=== PATIENT | female | born 1930 | race Caucasian/White ===

== ENCOUNTER → 2016-05-28 | Outpatient (REF) | payer MEDICARE, OTHER ==
[~2016-05-28] MED LIST: AZIT250T3 PO; BENI40TA3 PO; CEFT500T3 PO; CORE12.5 PO; FISH100049 PO; FLUO0.01 TOP; FURO20TA2 PO; HYDR10TAB PO; LEVO75TA4 PO; MULT1TAB8 PO; OMEP20CA3 PO; PRED20TA PO; PROA1AER INH; REST0.05 OU; SIMV40TA2 PO; VITA-130 PO; VITA100037 PO; ZOLO100T PO
[2016-05-28 12:26] LABS: ALBUMIN 3.6 GM/DL (3.2-5.2); ALBUMIN/GLOBULIN RATIO 1.57 (1.00-1.93); ALKALINE PHOSPHATASE 63 U/L (45-117); ALT/SGPT 25 U/L (12-78); ANION GAP 9 MEQ/L (8-16); AST/SGOT 19 U/L (15-37); BILIRUBIN,TOTAL 0.4 MG/DL (0.2-1.0); BLOOD UREA NITROGEN 15 MG/DL (7-18); CALCIUM LEVEL 8.3 MG/DL (8.8-10.2); CARBON DIOXIDE LEVEL 27 MEQ/L (21-32); CHLORIDE LEVEL 109 MEQ/L (98-107); CHOLESTEROL LEVEL 131 MG/DL (<200); CREATININE FOR GFR 0.78 MG/DL (0.55-1.02); GLOMERULAR FILTRATION RATE > 60.0 (>32); GLUCOSE, FASTING 99 MG/DL (83-110); SODIUM LEVEL 145 MEQ/L (136-145); TOTAL PROTEIN 5.9 GM/DL (6.4-8.2); TRIGLYCERIDES LEVEL 81 MG/DL (<150)
== END | disposition home or self-care (01) ==
LOC: M SFHCPLAZ 09:37
PROVIDERS: ATTEND Internal Medicine
DX: I10 Essential (primary) hypertension (principal); E78.00 Pure hypercholesterolemia, unspecified; E03.9 Hypothyroidism, unspecified

== ENCOUNTER → 2016-11-24 | Outpatient (REF) | payer MEDICARE, OTHER ==
[~2016-11-24] MED LIST changes: +ASPI1TAB PO; +AZIT-12 PO; -AZIT250T3 PO; +BENI40TA26 PO; -BENI40TA3 PO; +COUM2.5T17 PO; -PROA1AER INH; +PROAAER10 INH; +TRAM50TA2 PO; -VITA-130 PO; -VITA100037 PO; +VITA100067 PO; +VITA500T PO
[2016-11-24 11:18] LABS: MEAN CORPUSCULAR HEMOGLOBIN 30.6 pg (27.0-33.0); MEAN CORPUSCULAR HGB CONC 33.5 g/dl (32.0-36.5); MEAN CORPUSCULAR VOLUME 91.3 fl (80.0-96.0); RED CELL DISTRIBUTION WIDTH 12.6 % (11.5-14.5)
[2016-11-24 11:39] LABS: ALBUMIN 3.6 GM/DL (3.2-5.2); ALBUMIN/GLOBULIN RATIO 1.29 (1.00-1.93); ALKALINE PHOSPHATASE 57 U/L (45-117); ALT/SGPT 30 U/L (12-78); ANION GAP 9 MEQ/L (8-16); AST/SGOT 23 U/L (15-37); BILIRUBIN,TOTAL 0.3 MG/DL (0.2-1.0); BLOOD UREA NITROGEN 19 MG/DL (7-18); CALCIUM LEVEL 8.5 MG/DL (8.8-10.2); CARBON DIOXIDE LEVEL 28 MEQ/L (21-32); CHLORIDE LEVEL 108 MEQ/L (98-107); CHOLESTEROL LEVEL 174 MG/DL (<200); CREATININE FOR GFR 0.67 MG/DL (0.55-1.02); GLOMERULAR FILTRATION RATE > 60.0 (>32); GLUCOSE, FASTING 103 MG/DL (83-110); SODIUM LEVEL 145 MEQ/L (136-145); TOTAL PROTEIN 6.4 GM/DL (6.4-8.2); TRIGLYCERIDES LEVEL 91 MG/DL (<150)
== END ==
LOC: M SFHCPLAZ 08:58
PROVIDERS: ATTEND Internal Medicine
DX: K22.70 Barrett's esophagus without dysplasia (principal); I10 Essential (primary) hypertension; E78.00 Pure hypercholesterolemia, unspecified

== ENCOUNTER → 2017-01-21 | Outpatient (CLI) | payer MEDICARE, BC, OTHER ==
[2017-01-21 11:56] LABS: MEAN CORPUSCULAR HEMOGLOBIN 29.5 pg (27.0-33.0); MEAN CORPUSCULAR HGB CONC 32.7 g/dl (32.0-36.5); MEAN CORPUSCULAR VOLUME 90.5 fl (80.0-96.0); RED CELL DISTRIBUTION WIDTH 13.3 % (11.5-14.5); WHITE BLOOD COUNT 6.6 10^3/uL (4.0-10.0)
[2017-01-21 12:11] LABS: INR 1.04
[2017-01-21 12:46] LABS: ALBUMIN 3.9 GM/DL (3.2-5.2); ALBUMIN/GLOBULIN RATIO 1.26 (1.00-1.93); ALKALINE PHOSPHATASE 60 U/L (45-117); ALT/SGPT 30 U/L (12-78); ANION GAP 5 MEQ/L (8-16); AST/SGOT 17 U/L (15-37); BILIRUBIN,TOTAL 0.5 MG/DL (0.2-1.0); BLOOD UREA NITROGEN 27 MG/DL (7-18); CARBON DIOXIDE LEVEL 33 MEQ/L (21-32); CHLORIDE LEVEL 105 MEQ/L (98-107); CREATININE FOR GFR 0.91 MG/DL (0.55-1.02); GLOMERULAR FILTRATION RATE > 60.0 (>32); GLUCOSE, FASTING 99 MG/DL (83-110); POTASSIUM SERUM 4.2 MEQ/L (3.5-5.1); SODIUM LEVEL 143 MEQ/L (136-145)
--- NOTE | 2017-01-21 14:30 | REP ---
PA and lateral chest: Comparison is 09/26/2015. The lung tanner are clear. The cardiac size is normal The macarena, mediastinum, and bony thorax are unremarkable. There is a retrocardiac hiatal hernia, unchanged. Impression: Negative PA and lateral chest. Hiatal hernia is again identified. Signed by Otoniel Hart MD 01/21/2017 02:21 P
--- NOTE | 2017-01-21 19:29 | ECGEPIP ---
Stationary ECG Study [facility] Test Date: 2017-01-21 Pat Name: GEORGINA ECHEVERRIA Department: Room: - Gender: F Assistant Baseball Coach: BRIJESH : 1930 Requested By: Isma Joe Order Number: [id number] Reading MD: Yessica Bateman Measurements Intervals Gary Rate: 62 P: 51 [place]: 185 QRS: -47 QRSD: 106 T: 8 QT: 402 QTc: 410 Interpretive Statements SINUS RHYTHM PATTERN CONSISTENT WITH PULMONARY DISEASE LEFT ANTERIOR FASCICULAR BLOCK NON-SPECIFIC STT ABNORMALITIES NO PRIOR Electronically Signed On 01-21-2017 19:29:33 EDT by Yessica Bateman
== END ==
LOC: M ADMPAT 10:22
PROVIDERS: ATTEND Orthopaedic Surgery
DX: Z01.818 Encounter for other preprocedural examination (principal); M17.12 Unilateral primary osteoarthritis, left knee; Z79.01 Long term (current) use of anticoagulants; Z79.899 Other long term (current) drug therapy

== ENCOUNTER → 2017-01-26 | Outpatient (REF) | payer MEDICARE, OTHER | LOC: M LAB REF 09:36 | PROVIDERS: ATTEND Orthopaedic Surgery | DX: M17.12 Unilateral primary osteoarthritis, left knee (principal); Z01.818 Encounter for other preprocedural examination; Z79.899 Other long term (current) drug therapy ==

== ENCOUNTER 2017-02-03 10:13 | Inpatient (IN) | payer MEDICARE, BC, OTHER ==
[2017-01-21 11:41] VITALS: BP 124/74
--- NOTE | 2017-01-27 18:01 | HPE ---
DATE OF ADMISSION: 02/03/2017 HISTORY OF PRESENT ILLNESS: This is a pleasant elderly female with continuing symptomatic left knee osteoarthritis. She has consented for a left total knee arthroplasty per Dr. Isma Joe. X-rays are consistent with advanced osteoarthritis. The patient states she was cleared by Dr. Castro, which I am still awaiting the clearance note. ALLERGIES: CODEINE and SHELLFISH DERIVED PRODUCTS. MEDICATION LIST: Includes: - Mobic 7.5 mg - aspirin 81 mg - vitamin D - hydralazine HCl - omeprazole 20 mg - simvastatin 40 mg - sertraline HCl 100 mg - levothyroxine 75 mcg - furosemide 20 mg - carvedilol 12.5 mg - Restasis 0.05% - Benicar 40 mg MEDICAL PROBLEM LIST: Includes: 1. Symptomatic left knee osteoarthritis. 2. Essential hypertension. 3. Hypercholesteremia. 4. Acid reflux. 5. Depression. 6. Dry eyes. PAST SURGICAL HISTORY: 1. Tonsillectomy with adenoidectomy. 2. Cholecystectomy. 3. Appendectomy. 4. Partial hysterectomy. 5. Broken ankle. FAMILY HISTORY: Positive for hypertension, heart disease, arthritis, diabetes, hypercholesteremia. SOCIAL HISTORY: The patient denies ever smoking. Rare ethanol intake. No illicit drugs. REVIEW OF SYSTEMS: Denies chest pain, shortness breath, dyspnea on exertion, fever, chills, malaise, upper respiratory or urinary tract symptoms. PHYSICAL EXAMINATION: Height 5 feet, 1/2 inch, weight 184.4. Temperature 97.9, blood pressure 140/90, pulse 64, respirations 12. She is a pleasant, overweight female in no acute distress. She is alert and orientated times three. Mood and affect are appropriate. She is ambulating slow and steady with favoring of her right lower extremity and an antalgia about her left knee which is not effused, ecchymotic or erythematous , benign, noninfectious-looking, not hot to touch. She has positive medial joint line tenderness with crepitance about the knee through flexion and extension. She is stable about the collateral ligaments, patellar and quad tendons without palpable defects. Patellofemoral joint (PFJ) is congruent, static, dynamic. No popliteal fossa, mass or pain. Left hip range of motion is not limited or irritable through internal and external range of motion. She was possibly tender to palpation about both the medial, but more so the lateral joint line. The lower extremities were benign, noninfectious-looking. Skin is intact. Abdomen: Bowel soft, nontender times four. Chest rises symmetrically. Regular rate and rhythm. Lungs: Clear to auscultation. Neck: Supple. Negative jugular venous distention (JVD) or bruits. Normocephalic. EKG per [facility] was negative but a hiatal hernia was identified by Dr. Otoniel Hart 01/21/2017. EKG result sinus rhythm, pattern consistent with pulmonary disease, left anterior fascicular block as read by Dr. Bateman. Medical optimization per Dr. Moisés Castro 01/25/2017. Laboratories reviewed. Urinalysis (UA) and sinus culture: No growth, leukocyte esterase, urine auto, 2+ white blood cell (WBC) urine auto 7, bacteria urine auto +1. IMPRESSION: 1. Continuing symptomatic left knee osteoarthritis. 2. The patient consented for a left total knee arthroplasty per Dr. Isma Joe. 3. Medical optimization per Dr. Moisés Castro. 4. On-call to operating room (OR) 2 grams IV Kefzol in OR. 5. Sequential compression device (SCD) and thromboembolic-deterrent stockings (TEDS) in OR. 6. Surgical consent reviewed and up-to-date. [facility]
[~2017-02-03] VITALS: Ht 160 cm; Wt 84.8 kg
[~2017-02-03 10:13] MED LIST changes: -COUM2.5T17 PO; -TRAM50TA2 PO
[2017-02-03] MEDS ORDERED: LR 1,000 ML IV ONE (10:30)
[2017-02-03] MEDS ORDERED: fentaNYL 100 MCG/2 ML INJECTION (J3010) As Ordered ONE ×2 (11:12→12:46)
[2017-02-03] MEDS ORDERED: MIDAZOLAM INJ 2 MG/2 ML VIAL (J2250) As Ordered ONE ×2 (11:12→12:46)
--- NOTE | 2017-02-03 11:19 | HPE ---
DATE OF ADMISSION: 02/03/2017 The patient seen and examined. Wished to go ahead with a left total knee arthroplasty. She understands the nature of the procedure. The risks of bleeding, infection, damage to the nerve vessels, persistent pain, wear, loosening, blot clots medical problems, among others.
[2017-02-03] MEDS ORDERED: BUPIVACAINE LIPOSOME/PF 1.3% 20 ML VIAL (13.3MG/ML)(EXPAREL) As Ordered ONE (11:24)
[2017-02-03] MEDS ORDERED: ceFAZolin 1GM INJ (J0690) As Ordered ONE ×2 (11:25→12:22)
[2017-02-03] MEDS ORDERED: TRANEXAMIC ACID 100 MG/ML 10ML VIAL As Ordered ONE (11:27)
[2017-02-03] MEDS ORDERED: EPINEPHrine INJ 1 MG/ML 1ML AMP As Ordered ONE (11:27)
[2017-02-03] MEDS ORDERED: fentaNYL 100 MCG/2 ML INJECTION (J3010) IV SCH (11:45)
[2017-02-03] MEDS ORDERED: MIDAZOLAM INJ 2 MG/2 ML VIAL (J2250) IV SCH (11:45)
[2017-02-03] MEDS ORDERED: ONDANSETRON 4MG/2ML VIAL (J2405) As Ordered ONE (12:46)
[2017-02-03] MEDS ORDERED: METOCLOPRAMIDE INJ 10MG/2ML VIAL (J2765) As Ordered ONE (12:46)
[2017-02-03] MEDS ORDERED: PROPOFOL 500 MG/50 ML VIAL As Ordered ONE (12:46)
[2017-02-03] MEDS ORDERED: PHENYLephrine HCL 500 MCG/5 ML (100MCG/ML) SYRINGE (J2370) As Ordered ONE (12:56)
[2017-02-03] MEDS ORDERED: ePHEDrine SULFATE 25 MG/5 ML(5MG/ML) SYRINGE As Ordered ONE (12:56)
[2017-02-03] MEDS ORDERED: MORPHINE 1MG/ML IN 0.9% NACL 100ML IV BAG As Ordered ONE (13:33)
[2017-02-03] MEDS ORDERED: fentaNYL 100 MCG/2 ML INJECTION (J3010) IV PRN (14:15)
[2017-02-03] MEDS ORDERED: EPIDURAL/PCA KEYS XX PRN (14:15)
[2017-02-03] MEDS ORDERED: FLEET ENEMA PR PRN (14:15)
[2017-02-03] MEDS ORDERED: LR 1,000 ML IV SCH ×2 (14:15)
[2017-02-03] MEDS ORDERED: NALOXONE INJ 0.4 MG/1 ML VIAL (J2310) IV PRN (14:15)
[2017-02-03] MEDS ORDERED: MORPHINE 1MG/ML IN 0.9% NACL 100ML IV BAG IV PRN (14:15)
[2017-02-03] MEDS ORDERED: diphenhydrAMINE INJ 50MG/ML VIAL (J1200) IV PRN (14:15)
[2017-02-03] MEDS ORDERED: ACETAMINOPHEN TAB 650MG DOSE (2X325MG) PO PRN (14:15)
[2017-02-03] MEDS ORDERED: ONDANSETRON 4MG/2ML VIAL (J2405) IV PRN ×3 (14:15)
[2017-02-03] MEDS ORDERED: NALBUPHINE HCL 10 MG/ML AMP (J2300) IV PRN (14:15)
[2017-02-03] MEDS ORDERED: hydrALAZINE INJ 20 MG/ML VIAL As Ordered ONE (15:09)
[2017-02-03] MEDS ORDERED: hydrALAZINE INJ 20 MG/ML VIAL IV ONE (15:15)
[2017-02-03] MEDS ORDERED: **hydrALAZINE** 50 MG TAB PO ONE (15:15)
--- NOTE | 2017-02-03 15:45 | RO ---
DATE OF PROCEDURE: 02/03/2017 PREOPERATIVE DIAGNOSIS: Left knee osteoarthritis. POSTOPERATIVE DIAGNOSIS: Left knee osteoarthritis. OPERATIVE PROCEDURE: Left total knee arthroplasty using a PFC rotating platform, posterior stabilized size 3 femur, size 3 tibia, 10 polyethylene and a 32 patellar button. SURGEON: Isma Joe MD METALIZER: Mona Joe ANESTHESIA: Spinal ESTIMATED BLOOD LOSS: Less than 50 mL COMPLICATIONS: None INDICATION: 86-year-old woman who has had some gradually worsening left knee pain. She has had severe arthritis on her x-rays and wished to go ahead with surgical treatment. She understood the nature of the procedure and the risks including bleeding, infection, damage to nerves, vessels, persistent pain, wear, loosening, blood clots, medical problems, among others. Preop clearance obtained. DESCRIPTION OF PROCEDURE: The patient is taken to the operating room and placed in supine position after spinal anesthesia was induced. Left lower extremity was prepped and draped in the usual sterile fashion. Tourniquet was inflated. Time-out was performed. I then created a longitudinal incision over the anterior aspect of the knee. Sharp dissection was carried down through the subcutaneous tissue. Then I performed a medial parapatellar arthrotomy per routine, everted the patella, did a medial release and then using a canal initiating reamer on the femoral side, which the femoral side was in a fair amount of valgus. I did set the intramedullary guide at 7 degrees of valgus and 10 mm cut. This was pinned in place by the assistant chief nursing officer and actually removed 2 more millimeters of bone just judging by the depth of this cut. The sizing guide was used sized to be a size 3 femur and the pin holes were placed in the end of the femur with the 3 degrees external rotation device and then the four-in-one cutting block was placed and the remaining cuts were made as I protected soft tissues at all times. The tibial alignment guide was then placed and impacted down. This was placed with appropriate amount of valgus and posterior slope. I ended up cutting 10 off the high side and the external alignment guide was used confirm the alignment, which was appropriate and then I removed the tibial bone. The environmental inspector was then used to remove soft tissue and posterior osteophytes. Controlled hemostasis with the cautery. I then placed the size 3 cutting block for the box on the end of the femur, pinned this in place and made this cut by making first the two sagittal cuts followed by the axial cut. The bone cuts appeared to be appropriate. I then used the spacer block to check the space. The size 10 was appropriate in both flexion and extension and I was overall very pleased with the alignment and soft tissue tension. I then placed the tibial tray, size 3. This was pinned in place, drilled, broached and the remaining components were placed and I was very pleased with the position of alignment and soft tissue balance with the size 10 polyethylene. I then freehand cut the patella, removing about 7 mm of bone, sized the patella to be a 32. The drill holes were placed and trial patellar button was placed. I did have to do somewhat of a lateral release to allow for patellar tracking. The assistant chief nursing officer prepared the bone cement in the modern technique on the back table. I injected half of the Exparel using a total of 40 mL with 20 mL of the drug diluted into saline and this was injected around the capsule and extensor mechanism. Once the bony surfaces were copiously irrigated and dried I then cemented on the tibial tray, cemented on the femoral component, removed excess bone cement, placed the polyethylene and brought the knee out in extension, cemented on the patellar component, removed excess bone cement and then we copiously irrigated with antibiotic irrigation, placed the TXA solution. I then placed the remaining Exparel around the deep layers. The final irrigation was performed. I closed the deep layer with on #1 Vicryl suture with an interrupted fashion and then used a running Stratafix in each direction obtaining a watertight closure. I again irrigated, closed subcu with #2-0 Vicryl and the skin with jayla. Sterile dressing was applied. Tourniquet was deflated. She was taken to recovery room in stable condition. There were no known complications. The plan will be routine postop. The assistant chief nursing officer was instrumental in holding retractors and placing pins for some of the guides and assisting in wound closure.
[2017-02-03 15:48] LABS: MEAN CORPUSCULAR HEMOGLOBIN 29.9 pg (27.0-33.0); MEAN CORPUSCULAR VOLUME 90.7 fl (80.0-96.0); RED CELL DISTRIBUTION WIDTH 13.3 % (11.5-14.5); WHITE BLOOD COUNT 6.8 10^3/uL (4.0-10.0)
[2017-02-03 16:14] LABS: ALBUMIN 3.5 GM/DL (3.2-5.2); ALKALINE PHOSPHATASE 73 U/L (45-117); ALT/SGPT 47 U/L (12-78); ANION GAP 6 MEQ/L (8-16); AST/SGOT 56 U/L (15-37); BILIRUBIN,TOTAL 0.4 MG/DL (0.2-1.0); BLOOD UREA NITROGEN 16 MG/DL (7-18); CALCIUM LEVEL 8.4 MG/DL (8.8-10.2); CARBON DIOXIDE LEVEL 29 MEQ/L (21-32); CHLORIDE LEVEL 108 MEQ/L (98-107); GLUCOSE, FASTING 112 MG/DL (83-110); MAGNESIUM LEVEL 1.9 MG/DL (1.8-2.4); POTASSIUM SERUM 4.3 MEQ/L (3.5-5.1); SODIUM LEVEL 143 MEQ/L (136-145)
[2017-02-03 16:15] VITALS: BP 151/66
[2017-02-03 16:17] LABS: GLOMERULAR FILTRATION RATE > 60.0 (>32)
[2017-02-03] MEDS: OLMESARTAN MEDOXOMIL 20 MG TAB (BENICAR) PO SCH (16:32)
--- NOTE | 2017-02-03 16:38 | ECGEPIP ---
Stationary ECG Study [facility] Test Date: 2017-02-03 Pat Name: GEORGINA ECHEVERRIA Department: Room: [place] [address] Gender: F Winding Operator: BRIJESH : 1930 Requested By: VADIM MAC Order Number: [id number] Reading MD: Arnel Mcgee Measurements Intervals [place] Rate: 77 P: 17 [place]: 172 QRS: -48 QRSD: 100 T: 26 QT: 399 QTc: 454 Interpretive Statements SINUS RHYTHM PATTERN CONSISTENT WITH PULMONARY DISEASE left axis deviation Possible LEFT ANTERIOR FASCICULAR BLOCK MINIMAL ST DEPRESSION Improved repolarization compared to 01/21/2017. Electronically Signed On 02-03-2017 16:38:09 EDT by Arnel Mcgee
[2017-02-03 16:45] VITALS: BP 142/66
[2017-02-03] MEDS ORDERED: WARFARIN SOD 5 MG TAB PO ONE (17:00)
[2017-02-03] MEDS ORDERED: SIMVASTATIN 40 MG TAB PO SCH (17:00)
--- NOTE | 2017-02-03 18:05 | CR.PDOC ---
[facility] Consultation Consultation DATE OF CONSULTATION: 02/03/17 PRIMARY CARE PHYSICIAN: Dr. Moisés Castro REFERRING PROVIDER: Dr. Joe ATTENDING PHYSICIAN: Dr. Joe REASON FOR CONSULTATION/CHIEF COMPLAINT: Medical co-management HISTORY OF PRESENT ILLNESS: This is a 86-year-old female past medical history of hypertension, hyperlipidemia, GERD, symptomatic osteoarthritis for which she had a left total knee arthroplasty today. We have been consulted for medical comanagement. Upon evaluating patient, the patient's blood pressure was systolic greater than 200s diastolic greater than 100. She had not taken her blood pressure medications this morning. Patient also complaining of upper abdominal discomfort. Denies nausea/vomiting. Had a bowel movement this morning. Patient was given IV hydralazine followed by PO hydralazine, with improvement in her blood pressure. She was started on a clear liquid diet and her abdominal discomfort resolved. Her LFTs were within normal limits and her lipase was normal. Patient denies any chest pain/angina/palpation. No nausea/vomiting/abdominal pain. ALLERGIES: Please see below. HOME MEDICATIONS: Please see below. PHYSICAL EXAMINATION: Vitals: (see below) General: No acute distress, laying comfortably in bed. HEENT: Moist mucous membranes. Neck: No JVD or lymphadenopathy Cardiac: RRR, No murmurs Pulm: Clear to auscultation b/l. No wheezing, rhonchi Abd: NT/ND + BS. Obese Ext: Left knee in Mart bandage. Distal pulses intact. LABORATORY DATA: See below. IMAGING: MICROBIOLOGY: Please see below. ASSESSMENT/PLAN: 1. Postop day 0 status post left knee arthroplasty- management per orthopedics. 2. Hypertension- started on hydralazine, continue ARB. Diuretics held for now continue restarting tomorrow. 3. Abdominal discomfort- likely bloating. Resolved. LFTs/lipase within normal limits. EKG with no acute ST changes. Cardiac enzymes negative. 4. History of GERD.-On PPI 5. Hypothyroidism- continue Synthroid 6. History of depression- continue home meds DVT prophylaxis- per orthopedics Patient will be followed by Dr. Christie Durán starting 02/04/17 at 7 AM. Vital Signs/I&O Vital Signs Date Time Temp Pulse Resp B/P (MAP) Pulse Ox O2 Delivery O2 Flow Rate FiO2 02/03/17 16:45 97.9 79 14 142/66 (91) 97 Nasal Cannula 2.0 I&O- Last 24 Hours up to 6 AM 02/04/17 06:00 Intake Total 1840 ml Output Total 650 ml Balance 1190 ml Laboratory Data Labs 24H Laboratory Tests 2 02/03/17 15:35: Nucleated Red Blood Cells % (auto) 0.0, Anion Gap 6L, Glomerular Filtration Rate > 60.0, Blood Urea Nitrogen 16, Creatinine 0.80, Sodium Level 143, Potassium Level 4.3, Chloride Level 108H, Carbon Dioxide Level 29, Calcium Level 8.4L, Aspartate Amino Transf (AST/SGOT) 56H, Alanine Aminotransferase (ALT /SGPT) 47, Total Creatine Kinase 116, Alkaline Phosphatase 73, Total Bilirubin 0.4, Total Protein 6.0L, Albumin 3.5, Magnesium Level 1.9, Creatine Kinase MB 3.3, Creatine Kinase MB Relative Index 2.84, Troponin I < 0.02, Albumin/ Globulin Ratio 1.40, Lipase 67L CBC/BMP Laboratory Tests 02/03/17 15:35 Red Blood Count 4.18, Mean Corpuscular Volume 90.7, Mean Corpuscular Hemoglobin 29.9, Mean Corpuscular Hemoglobin Concent 33.0, Red Cell Distribution Width 13.3 , Calcium Level 8.4 L, Aspartate Amino Transf (AST/SGOT) 56 H, Alanine Aminotransferase (ALT/SGPT) 47, Total Creatine Kinase 116, Alkaline Phosphatase 73, Total Bilirubin 0.4, Total Protein 6.0 L, Albumin 3.5 Allergies Coded Allergies: Codeine (Unverified Adverse Reaction, Mild, ABDOMINAL PAIN, 02/03/17) Shellfish Allergy (Verified Adverse Reaction, Mild, N/V, 01/21/17) Home Medications Scheduled (Multi Vitamin Daily) 1 Tab Tab, 1 TAB PO DAILY, (Reported) (Restasis) 0.05 % Emu, 0.05 % OU BID, (Reported) Ascorbic Acid (Vitamin C) 500 Mg Tab, 500 MG PO DAILY, (Reported) Aspirin (Aspirin 81) 81 Mg Tab, 81 MG PO DAILY, #30 (Reported) Carvedilol (Coreg) 12.5 Mg Tab, 12.5 MG PO BID, (Reported) Fish Oil (Fish Oil 1000 mg) 1 Cap Cap, 1 CAP PO BID, (Reported) Furosemide (Furosemide) 20 Mg Tab, 20 MG PO DAILY, (Reported) Hydralazine HCl (Hydralazine HCl) 10 Mg Tab, 10 MG PO BID, (Reported) Levothyroxine Sodium (Synthroid) 75 Mcg Tab, 75 MCG PO DAILY, (Reported) Olmesartan Medoxomil (Benicar) 40 Mg Tab, 40 MG PO DAILY, (Reported) Omeprazole (Omeprazole) 20 Mg Cap, 40 MG PO DAILY, (Reported) Sertraline Hcl (Zoloft) 100 Mg Tab, 50 MG PO DAILY, (Reported) Simvastatin - High Dose (Simvastatin) 40 Mg Tab, 20 MG PO 3XW, (Reported) takes @1700 mon, wed, fri Vitamin D (Vitamin D) 1,000 Unit Cap, 1,000 UNIT PO DAILY, (Reported) Scheduled PRN Albuterol Sulfate (Proair Hfa) 108 Mcg/Act Aer, 108 MCG INH PRN PRN for SHORTNESS OF BREATH, (Reported) Fluocinolone Acetonide (Fluocinolone Acetonide) 0.01 % Cre, 0.01 % TOP PRN PRN for ITCHING, (Reported) applies to genital area and under breasts VADIM MAC MD Feb 03, 2017 18:05
[2017-02-03 18:45] VITALS: BP 120/61
[2017-02-03 19:45] VITALS: BP 139/65
[2017-02-03] MEDS: CARVedilol 12.5 MG TAB PO SCH (20:20)
[2017-02-03 20:45] VITALS: BP 136/64
[2017-02-03 21:44] VITALS: O2SAT 96
[2017-02-04 00:45] VITALS: BP 128/62
[2017-02-04] MEDS: LEVOTHYROXINE 75MCG TABLET (0.075MG) PO SCH (05:38)
[2017-02-04 06:00] VITALS: BP 119/55
[2017-02-04] MEDS ORDERED: traMADol 50 MG TAB PO PRN (06:45)
[2017-02-04] MEDS ORDERED: ONDANSETRON 4 MG TAB (S0181) PO PRN (06:45)
[2017-02-04 07:18] LABS: MEAN CORPUSCULAR HEMOGLOBIN 29.6 pg (27.0-33.0); MEAN CORPUSCULAR HGB CONC 32.1 g/dl (32.0-36.5); MEAN CORPUSCULAR VOLUME 92.3 fl (80.0-96.0); RED CELL DISTRIBUTION WIDTH 13.4 % (11.5-14.5); WHITE BLOOD COUNT 9.3 10^3/uL (4.0-10.0)
[2017-02-04 07:23] LABS: INR 1.35
[2017-02-04] MEDS: MIRALAX *UNIT DOSE* 17GM PACKET PO SCH (09:10)
[2017-02-04] MEDS: MOM 30ML SUSPENSION UDC PO SCH (09:10)
[2017-02-04] MEDS: OLMESARTAN MEDOXOMIL 20 MG TAB (BENICAR) PO SCH (09:11)
[2017-02-04] MEDS: SENOKOT S TAB PO SCH ×2 (09:12→22:26)
[2017-02-04] MEDS: VITAMIN D 1,000 INTERNATIONAL UNITS TABLET PO SCH (09:12)
[2017-02-04] MEDS: SERTRALINE HCL 50 MG TAB PO SCH (09:12)
[2017-02-04] MEDS: CARVedilol 12.5 MG TAB PO SCH ×2 (09:12→22:26)
[2017-02-04] MEDS: OMEPRAZOLE 20 MG CAP PO SCH (09:12)
[2017-02-04] MEDS: ASCORBIC ACID 500 MG TAB PO SCH (09:13)
[2017-02-04] MEDS: **hydrALAZINE** 10 MG TAB PO SCH ×2 (09:13→22:25)
[2017-02-04] MEDS: traMADol 50 MG TAB PO PRN ×3 (09:13→22:55)
--- NOTE | 2017-02-04 11:43 | REP ---
AP LATERAL LEFT KNEE, TWO VIEWS: HISTORY: Knee replacement. The patient is status post left total knee replacement. There is no acute fracture or dislocation. A small amount of subcutaneous air and surgical jayla are present in the overlying soft tissue. IMPRESSION: The patient is status post left total knee replacement. There is anatomic alignment. Signed by Franklin Chavez MD 02/04/2017 11:46 A
[2017-02-04 14:00] VITALS: BP 127/60
[2017-02-04] MEDS ORDERED: WARFARIN SOD 5 MG TAB PO ONE (17:00)
[2017-02-04 22:00] VITALS: BP 122/56
[2017-02-05 03:52] VITALS: O2SAT 97
[2017-02-05] MEDS: LEVOTHYROXINE 75MCG TABLET (0.075MG) PO SCH (05:44)
[2017-02-05 06:00] VITALS: BP 120/56
[2017-02-05 06:49] LABS: MEAN CORPUSCULAR HGB CONC 32.9 g/dl (32.0-36.5); MEAN CORPUSCULAR VOLUME 91.1 fl (80.0-96.0); PLATELET COUNT, AUTOMATED 181 10^3/uL (150-450); RED CELL DISTRIBUTION WIDTH 13.4 % (11.5-14.5); WHITE BLOOD COUNT 10.6 10^3/uL (4.0-10.0)
[2017-02-05 07:03] LABS: INR 2.36
[2017-02-05 09:00] VITALS: O2SAT 96
[2017-02-05] MEDS: VITAMIN D 1,000 INTERNATIONAL UNITS TABLET PO SCH (09:46)
[2017-02-05] MEDS: SERTRALINE HCL 50 MG TAB PO SCH (09:46)
[2017-02-05] MEDS: OMEPRAZOLE 20 MG CAP PO SCH (09:46)
[2017-02-05] MEDS: ASCORBIC ACID 500 MG TAB PO SCH (09:46)
[2017-02-05 09:47] VITALS: BP 120/56
[2017-02-05] MEDS: OLMESARTAN MEDOXOMIL 20 MG TAB (BENICAR) PO SCH (09:47)
[2017-02-05] MEDS: **hydrALAZINE** 10 MG TAB PO SCH (09:47)
[2017-02-05] MEDS: MOM 30ML SUSPENSION UDC PO SCH (09:48)
[2017-02-05] MEDS: SENOKOT S TAB PO SCH (09:48)
[2017-02-05] MEDS: traMADol 50 MG TAB PO PRN (09:48)
[2017-02-05] MEDS: CARVedilol 12.5 MG TAB PO SCH (09:48)
[2017-02-05] MEDS: MIRALAX *UNIT DOSE* 17GM PACKET PO SCH (09:48)
[2017-02-05 14:00] VITALS: BP 117/55
--- NOTE | 2017-02-09 17:02 | DSES ---
DATE OF ADMISSION: DATE OF DISCHARGE: 02/05/2017 ATTENDING PHYSICIAN: Dr Isma Joe ADMITTING DIAGNOSIS: Left knee osteoarthritis. OTHER DIAGNOSES: 1. Essential hypertension. 2. Hypercholesterolemia. 3. Gastroesophageal reflux disease. 4. Depression. 5. Dry eyes. DISCHARGE DIAGNOSIS: Left knee osteoarthritis status post left total knee arthroplasty. HISTORY: Patient is an 86-year-old female with progressively worsening left knee pain and stiffness. She failed to improve with conservative measures. She continued to have pain with weightbearing activities and activities of daily living. She consented for an elective left total knee arthroplasty with Dr. Joe. OPERATION PERFORMED: Left total knee arthroplasty. HOSPITAL COURSE: The patient underwent a left total knee arthroplasty under spinal anesthesia, which was uneventful. Her hospital course was without complication and she was up with physical therapy per their protocol, weightbearing as tolerated on the left lower extremity. Patient was discharged on oral pain medications and will resume her preoperative medications and diet. She will take her Coumadin and use her thromboembolic deterrent stockings for 30 days postoperatively to prevent deep venous thrombosis. She will follow up in our clinic in 12-14 days for a wound check and staple removal. She is encouraged to contact our office sooner if there is any increased pain, drainage, redness, numbness or tingling in the extremity, fever greater than 101 degrees, or any other concerns. NICOLE
== END 2017-02-05 15:50 | DRG 470 ==
LOC: M OR 10:13 → M MS5PR 16:00
PROVIDERS: ADMIT Orthopaedic Surgery; ATTEND Orthopaedic Surgery
PROC: 0SRD0J9 Replacement of Left Knee Joint with Synthetic Substitute, Cemented, Open Approach (ICD-10-PCS; principal; 2017-02-03 12:30)
DX: M17.12 Unilateral primary osteoarthritis, left knee (principal); I10 Essential (primary) hypertension; E78.5 Hyperlipidemia, unspecified; K21.9 Gastro-esophageal reflux disease without esophagitis; R26.9 Unspecified abnormalities of gait and mobility; R14.0 Abdominal distension (gaseous); F32.9 Major depressive disorder, single episode, unspecified; H04.123 Dry eye syndrome of bilateral lacrimal glands; Z79.82 Long term (current) use of aspirin; Z79.899 Other long term (current) drug therapy

== ENCOUNTER 2017-02-05 14:31 | Inpatient (IN) | payer MEDICARE, BC, OTHER ==
[~2017-02-05] VITALS: Ht 154.9 cm; Wt 84.3 kg
[2017-02-05] MEDS ORDERED: MOM 30ML SUSPENSION UDC PO PRN (15:00)
[2017-02-05] MEDS ORDERED: FLEET ENEMA PR PRN (15:00)
[2017-02-05] MEDS ORDERED: POLYVINYL ALCOHOL OPHTH SOLN 15 ML(LIQUITEARS) OU PRN (15:45)
[2017-02-05 15:50] VITALS: BP 126/60
--- NOTE | 2017-02-05 17:01 | PMRHPE ---
DATE OF ADMISSION: 02/05/2017 REASON FOR ADMISSION: Rehabilitation of left total knee arthroplasty secondary to end-stage degenerative joint disease (DJD) of the left knee on 02/03/2017. 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 The patient, however, had failed conservative management and elected total knee arthroplasty which Dr. Isma Joe performed on 02/03/2017. The patient did have a little bit of hypertension preoperatively which was treated by Dr. Gary with some intravenous (IV) hydralazine and then oral hydralazine. Following her surgery two days ago, the patient has been started on physical and occupational therapy and today did very well in physical therapy and occupational therapy, showing potential to do the three hours of therapy per day. She desires acute intensive rehabilitation. Does have a number of medical problems including the recent flareup of malignancy hypertension with systolic blood pressure that went over 200, along with ongoing postoperative anemia and management of her cholesterol, hypothyroidism, gastroesophageal reflux disease (GERD). She also has some depression and problem with dry eyes. Past surgical history includes tonsillectomy with adenoidectomy, cholecystectomy, appendectomy, partial hysterectomy, and surgical repair of a broken ankle. FAMILY HISTORY: Positive for hypertension, heart disease, arthritis, diabetes, and hypercholesterolemia. SOCIAL HISTORY: The patient previously independent living white female here in [employer]. Has never smoked. Has rare alcohol intake. No illicit drugs. REVIEW OF SYSTEMS: Includes the arthritis and shortness of breath for which she is on oxygen, and the knee pain. Otherwise, negative 10-point assessment. PHYSICAL EXAMINATION: The patient is an alert, pleasant, elderly white female of somewhat below average height. She is a bit overweight at 5 feet and 1/2 inches tall, 84 kg in weight. VITAL SIGNS: Temperature is 97.3, blood pressure 120/56 with pulse of 69, respirations 18, pulse oximetry 97% on two liters by nasal cannula. HEENT: Normocephalic, atraumatic. Using glasses for visual correction. She does have graying and thinning of her hair, but actually has fairly intact amount of hair follicles. Pupils equal, round, and reactive to light and accommodation. Extraocular motions are intact. Nares are clear without any drainage. Nasal septum is straight. Tongue is midline. There is no facial drooping. Oropharynx without apparent lesion on visualization. NECK: Supple. No carotid bruits. Thyroid feels normal in texture and size and is midline and slides with swallow. LUNGS: Clear in all tanner to auscultation. CORONARY: Shows a regular rate and rhythm with normal S1, S2, without S3, S4 murmurs or rubs. Patient with 2/4 bilateral radial pulses. Good coloration and temperature to the upper and lower extremities. ABDOMEN: Obese. Bowel sounds are present in all quadrants. The abdomen is without significant tenderness or masses on palpation. EXTREMITIES: Bilateral upper and right lower extremity with functional range of motion and strength. Left hip good. Left knee diminished range of motion and tenderness and guarding present. Ankles with full range of motion. NEUROLOGIC: The patient is alert and oriented to person, place, time and situation. Speech is clear, coherent and appropriate. Affect is pleasant and cooperative. Memory is grossly intact. Light touch and vibration are intact in bilateral upper and lower extremities. Tone is within normal limits in bilateral upper and lower extremities. Deep tendon reflexes shows 2+ right knee jerk, trace ankle jerks, downgoing toes on plantar stimulation, 2/4 biceps, triceps, and brachioradialis reflexes. Mood is good. LABORATORY DATA: White count is mildly elevated today at 10.6 thousand. Hemoglobin and hematocrit are 10.8 and 32.8 for a mild to moderate level of anemia. Coagulation, however, had a marked response to 5 mg of Coumadin last night, and is now at 2.6. Target range will be 1.7 to 2.0, and will be managed by Ms. Gary from orthopedics. Chemistry shows sodium 143, potassium 4.3, but an elevation in chloride at 108, carbon dioxide normal at 29, BUN and creatinine are 16 and 0.80, with mildly elevated fasting glucose this morning at 112, calcium mildly reduced at 8.4, but albumin normal at 3.5 with mild decrease in total protein at 6.0. Liver function tests are normal except for mild elevation of AST at 56, which will be monitored, and CK-MB is 3.3 with the relative index of 2.84. Lipase is mildly low at 67. IMAGING: X-ray shows good alignment and positioning of the prosthetic joint. ASSESSMENT AND PLAN: 1. Rehabilitation of left total knee arthroplasty with musculoskeletal rehabilitation three hours of therapy per day between physical and occupational therapy. The patient who is cognitively intact, as well as speech and lacking signs of dysphasia or dysarthria, will not need any speech therapy; however, with medical problems, will need monitoring from internal medicine, as well as rehabilitation nursing and physiatry going forward. Orthopedics will also continue to follow the patient and will manage Coumadin. The patient overall doing well, though has had some minor preoperative hypertensive problem which we will be watching. Should be able to participate in and benefit from the three hours of therapy per day, and I anticipate her length of stay will be 7-10 days to return to modified independent level of living at home. 2. Mild to moderate anemia. We will continue to track this. 3. Respiratory stress. Patient now requiring two liters of oxygen by nasal cannula at rest. This likely related to stress of surgery and the anemia. We will try to work to wean patient from this; if not, make appropriate home arrangements. The patient will be on incentive spirometry. 4. Hypertension. As noted above, patient with marked elevation. For now we will continue to monitor and manage with the hydralazine, Coreg and Benicar, and her cholesterol with the simvastatin 20 mg every Wednesday, Wednesday, Wednesday, 5 p.m. 5. Pain management. We will go ahead and use tramadol 50 mg for moderate pain, and 100 mg for severe pain, and try avoid all opiates to avoid confusion plus any cross reactivity with her prior problems with codeine. 6. Deep venous thrombosis (DVT) prophylaxis. The patient will be on Coumadin, use thromboembolism deterrent (SHIRAZ) hose, and try and progress her ambulation and maintain good hydration. POST-ADMISSION PHYSICIAN EVALUATION: I feel the patient is consistent with the preadmission screening and is very motivated and capable in participating in and benefiting from three hours of physical and occupational therapy per day, with a good prognosis for return to living at home and an estimated length of stay of 7-10 days. TIME SPENT: On chart review, history and physical, and documentation is greater than 70 minutes.
[2017-02-05] MEDS: traMADol 50 MG TAB PO PRN (18:01)
[2017-02-05] MEDS: SIMVASTATIN 20 MG TAB PO SCH (18:01)
[2017-02-05 20:00] VITALS: BP 120/63
[2017-02-05] MEDS: SENOKOT S TAB PO SCH (21:13)
[2017-02-05] MEDS: CARVedilol 12.5 MG TAB PO SCH (21:15)
[2017-02-05] MEDS: **hydrALAZINE** 10 MG TAB PO SCH (21:15)
[2017-02-06] MEDS: LEVOTHYROXINE 75MCG TABLET (0.075MG) PO SCH (05:33)
[2017-02-06] MEDS: traMADol 50 MG TAB PO PRN (05:33)
[2017-02-06 06:00] VITALS: BP 137/65
[2017-02-06 06:14] LABS: BASO % 0.1 % (0.0-1.0); EOS # 0.1 10^3/uL (0.0-0.50); EOS % 0.7 % (0.0-3.0); IMMATURE GRANULOCYTE % 0.4 % (0-0); LYMPH # 0.9 10^3/uL (1.5-4.5); LYMPH % 13.1 % (24.0-44.0); MEAN CORPUSCULAR HEMOGLOBIN 29.8 pg (27.0-33.0); MEAN CORPUSCULAR HGB CONC 32.4 g/dl (32.0-36.5); MONO # 1.1 10^3/uL (0.0-0.8); MONO % 14.9 % (0.0-5.0); NEUTROPHILS # 5.1 10^3/uL (1.8-7.7); NEUTROPHILS % 70.8 % (36.0-66.0); PLATELET COUNT, AUTOMATED 166 10^3/uL (150-450); RED CELL DISTRIBUTION WIDTH 13.7 % (11.5-14.5); WHITE BLOOD COUNT 7.2 10^3/uL (4.0-10.0)
[2017-02-06 06:28] LABS: INR 2.17
[2017-02-06 06:42] LABS: ALBUMIN 2.5 GM/DL (3.2-5.2); ALBUMIN/GLOBULIN RATIO 0.96 (1.00-1.93); ALKALINE PHOSPHATASE 104 U/L (45-117); ALT/SGPT 133 U/L (12-78); ANION GAP 5 MEQ/L (8-16); AST/SGOT 46 U/L (15-37); BILIRUBIN,TOTAL 0.5 MG/DL (0.2-1.0); BLOOD UREA NITROGEN 21 MG/DL (7-18); CALCIUM LEVEL 7.8 MG/DL (8.8-10.2); CARBON DIOXIDE LEVEL 31 MEQ/L (21-32); CHLORIDE LEVEL 101 MEQ/L (98-107); CREATININE FOR GFR 0.59 MG/DL (0.55-1.02); GLOMERULAR FILTRATION RATE > 60.0 (>32); GLUCOSE, FASTING 90 MG/DL (83-110); POTASSIUM SERUM 4.1 MEQ/L (3.5-5.1); SODIUM LEVEL 137 MEQ/L (136-145); TOTAL PROTEIN 5.1 GM/DL (6.4-8.2)
[2017-02-06] MEDS: VITAMIN D 1,000 INTERNATIONAL UNITS TABLET PO SCH (09:06)
[2017-02-06] MEDS: OLMESARTAN MEDOXOMIL 20 MG TAB (BENICAR) PO SCH (09:07)
[2017-02-06] MEDS: OMEPRAZOLE 20 MG CAP PO SCH (09:07)
[2017-02-06] MEDS: ASCORBIC ACID 500 MG TAB PO SCH (09:07)
[2017-02-06] MEDS: SENOKOT S TAB PO SCH ×2 (09:07→21:07)
[2017-02-06] MEDS: **hydrALAZINE** 10 MG TAB PO SCH ×2 (09:07→21:08)
[2017-02-06] MEDS: CARVedilol 12.5 MG TAB PO SCH ×2 (09:07→21:08)
[2017-02-06] MEDS: SERTRALINE HCL 50 MG TAB PO SCH (09:08)
[2017-02-06] MEDS: ACETAMINOPHEN TAB 650MG DOSE (2X325MG) PO PRN ×2 (13:58→21:07)
[2017-02-06 14:00] VITALS: BP 126/60
[2017-02-06 20:00] VITALS: BP 141/64
[2017-02-07] MEDS: ACETAMINOPHEN TAB 650MG DOSE (2X325MG) PO PRN (05:39)
[2017-02-07] MEDS: LEVOTHYROXINE 75MCG TABLET (0.075MG) PO SCH (05:39)
[2017-02-07 06:00] VITALS: BP 168/62
[2017-02-07 07:24] LABS: INR 1.56
[2017-02-07] MEDS: OLMESARTAN MEDOXOMIL 20 MG TAB (BENICAR) PO SCH (08:46)
[2017-02-07] MEDS: OMEPRAZOLE 20 MG CAP PO SCH (08:46)
[2017-02-07] MEDS: CARVedilol 12.5 MG TAB PO SCH ×2 (08:46→20:36)
[2017-02-07] MEDS: SENOKOT S TAB PO SCH ×2 (08:46→20:28)
[2017-02-07] MEDS: SERTRALINE HCL 50 MG TAB PO SCH (08:47)
[2017-02-07] MEDS: ASCORBIC ACID 500 MG TAB PO SCH (08:47)
[2017-02-07] MEDS: VITAMIN D 1,000 INTERNATIONAL UNITS TABLET PO SCH (08:47)
[2017-02-07] MEDS: **hydrALAZINE** 10 MG TAB PO SCH ×2 (08:48→20:35)
[2017-02-07] MEDS: traMADol 50 MG TAB PO PRN ×2 (08:53→20:38)
[2017-02-07 14:00] VITALS: BP 166/64
[2017-02-07 14:31] LABS: MEAN CORPUSCULAR HEMOGLOBIN 29.9 pg (27.0-33.0); MEAN CORPUSCULAR HGB CONC 32.9 g/dl (32.0-36.5); MEAN CORPUSCULAR VOLUME 90.7 fl (80.0-96.0); PLATELET COUNT, AUTOMATED 239 10^3/uL (150-450); RED CELL DISTRIBUTION WIDTH 13.4 % (11.5-14.5); WHITE BLOOD COUNT 6.7 10^3/uL (4.0-10.0)
[2017-02-07 14:46] LABS: ANION GAP 6 MEQ/L (8-16); BLOOD UREA NITROGEN 21 MG/DL (7-18); CALCIUM LEVEL 8.3 MG/DL (8.8-10.2); CARBON DIOXIDE LEVEL 30 MEQ/L (21-32); CHLORIDE LEVEL 104 MEQ/L (98-107); CREATININE FOR GFR 0.66 MG/DL (0.55-1.02); GLOMERULAR FILTRATION RATE > 60.0 (>32); GLUCOSE, FASTING 118 MG/DL (83-110); POTASSIUM SERUM 3.7 MEQ/L (3.5-5.1); SODIUM LEVEL 140 MEQ/L (136-145)
[2017-02-07 15:02] LABS: ERYTHROCYTE SEDIMENTATION RATE 67 mm/hr (0-42)
[2017-02-07] MEDS ORDERED: WARFARIN SOD 2.5 MG TAB PO ONE (17:00)
[2017-02-07 20:00] VITALS: BP 152/68
[2017-02-08] MEDS: traMADol 50 MG TAB PO PRN ×3 (03:31→20:55)
[2017-02-08] MEDS: LEVOTHYROXINE 75MCG TABLET (0.075MG) PO SCH (05:49)
[2017-02-08 06:00] VITALS: BP 142/68
[2017-02-08 06:29] LABS: MEAN CORPUSCULAR HEMOGLOBIN 29.9 pg (27.0-33.0); MEAN CORPUSCULAR VOLUME 90.7 fl (80.0-96.0); PLATELET COUNT, AUTOMATED 229 10^3/uL (150-450); RED CELL DISTRIBUTION WIDTH 13.4 % (11.5-14.5); WHITE BLOOD COUNT 5.8 10^3/uL (4.0-10.0)
[2017-02-08 06:51] LABS: INR 1.26
[2017-02-08] MEDS: SERTRALINE HCL 50 MG TAB PO SCH (09:10)
[2017-02-08] MEDS: SENOKOT S TAB PO SCH ×2 (09:10→20:52)
[2017-02-08] MEDS: ASCORBIC ACID 500 MG TAB PO SCH (09:11)
[2017-02-08] MEDS: VITAMIN D 1,000 INTERNATIONAL UNITS TABLET PO SCH (09:11)
[2017-02-08] MEDS: OMEPRAZOLE 20 MG CAP PO SCH (09:11)
[2017-02-08] MEDS: **hydrALAZINE** 10 MG TAB PO SCH ×2 (09:11→20:54)
[2017-02-08] MEDS: CARVedilol 12.5 MG TAB PO SCH ×2 (09:11→20:53)
[2017-02-08] MEDS: OLMESARTAN MEDOXOMIL 20 MG TAB (BENICAR) PO SCH (09:11)
--- NOTE | 2017-02-08 11:34 | IPNPDOC ---
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 The patient, however, had failed conservative management and elected total knee arthroplasty which Dr. Isma Joe performed on 02/03/2017. The patient did have a little bit of hypertension preoperatively which was treated by Dr. Gary with some intravenous (IV) hydralazine and then started on physical and occupational therapy and today did very well in physical therapy and occupational therapy, showing potential to do the three hours of therapy per day. Patient seen in OT doing Shower Bench transfers. She is without complaints, though she has some knee pain. ALLERGIES: See Below MEDICATIONS: Reviewed, see below. OBJECTIVE: VITAL SIGNS: Please see below. PHYSICAL EXAMINATION: GENERAL: Patient is a short, overweight, elderly, white female, who is alert and well oriented. She is pleasant and cooperative and appears to be in mild musculoskeletal distress favoring her left knee. HEENT: Normocephalic/atraumatic using glasses for visual correction. CARDIOVASCULAR: Regular rate and rhythm with normal S1 and S2. 2/4 bilateral radial pulses. LUNGS: All tanner clear to auscultation. ABDOMEN: Obese nontender with normal bowel sounds in all quadrants. NEUROLOGICAL: Patient alert and oriented 4. Speech is clear, coherent and appropriate. Memory is grossly intact. Affect is pleasant and cooperative. Motor shows 4+ to 5/5 bilateral upper and right lower extremities and 4 out of 5 left lower extremity. Balance is good and patient ambulating well with front wheeled walker. SKIN: TKA incision is healing with no drainage into the Optifoam AG dressing and improving color along the incision. LABORATORY DATA: Reviewed. Please see below. MICROBIOLOGY: Please see below. IMAGING: No new imaging. DVT prophylaxis ordered?: She'll on Coumadin with SHIRAZ hose. INR today is 1.26 with target 1.7-2.0. Ms. Gary has ordered Coumadin for today. ASSESSMENT AND PLAN: 1. 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 Patient with some hypertension elevation through the weekend but overall this is not interfered with her being able to attend therapy and perform well. Shouldn't pain management has been reasonably well controlled on tramadol. REHAB. TEAM ROUNDS: Patient doing extremely well in PT/OT and Room Privileges recommended and patient should meet Discharge to Home Goals with [facility] and PT needs by this week 02/11/17. 2. Hypertension: Episodically patient has been in the 160's for SBP. Patient continues on Apresoline and Coreg for now. We will continue to observe. 3. Anemia: H&H is 9.6 and 29.1% today on 02/08/17. She is remained relatively stable through the weekend. We will continue to monitor. 4. C reactive protein: Currently 13.10, however wbc's only 5.8 thousand. We will continue observe angela sign of infection. TIME SPENT: Chart Review, examination and documentation require greater than 25 minutes. Allergies Coded Allergies: Codeine (Unverified Adverse Reaction, Mild, ABDOMINAL PAIN, 02/03/17) Shellfish Allergy (Verified Adverse Reaction, Mild, N/V, 01/21/17) Vital Signs Vital Signs Date Time Temp Pulse Resp B/P (MAP) Pulse Ox O2 Delivery O2 Flow Rate FiO2 02/08/17 09:11 142/68 02/08/17 06:00 97.5 68 20 93 Room Air 02/06/17 08:00 2.0 Laboratory Data CBC/BMP Laboratory Tests 02/07/17 14:01 Red Blood Count 3.45 L, Mean Corpuscular Volume 90.7, Mean Corpuscular Hemoglobin 29.9, Mean Corpuscular Hemoglobin Concent 32.9, Red Cell Distribution Width 13.4, Calcium Level 8.3 L 02/08/17 06:14 Red Blood Count 3.21 L, Mean Corpuscular Volume 90.7, Mean Corpuscular Hemoglobin 29.9, Mean Corpuscular Hemoglobin Concent 33.0, Red Cell Distribution Width 13.4 Labs 24H Laboratory Tests 2 02/07/17 14:01: Nucleated Red Blood Cells % (auto) 0.0, Erythrocyte Sedimentation Rate 67H, Anion Gap 6L, Glomerular Filtration Rate > 60.0, Blood Urea Nitrogen 21H, Creatinine 0.66, Sodium Level 140, Potassium Level 3.7, Chloride Level 104, Carbon Dioxide Level 30, Calcium Level 8.3L, C-Reactive Protein, Quantitative 13.10H 02/08/17 06:14: Nucleated Red Blood Cells % (auto) 0.0, Prothrombin Time 16.1H, Prothromb Time International Ratio 1.26 Current Medications Current Medications Current Medications Acetaminophen (Tylenol Tab) 650 mg Q6HP PRN PO MILD PAIN (PS 1-4) Last administered on 02/07/17 05:39; Start 02/05/17 at 15:00; Stop 03/07/17 at 14 :59 Artificial Tears (Akwa Tears) 2 drop QIDP PRN OU DRY EYES; Start 02/05/17 at 15:45; Stop 03/07/17 at 15:44 Ascorbic Acid (Vitamin C) 500 mg DAILY PO Last administered on 02/08/17 09:11 ; Start 02/06/17 at 09:00; Stop 03/08/17 at 08:59 Carvedilol (COReg) 12.5 mg BID PO Last administered on 02/08/17 09:11; Start 02/05/17 at 21:00; Stop 03/07/17 at 20:59 Hydralazine HCl (Apresoline) 10 mg BID PO Last administered on 02/08/17 09:11 ; Start 02/05/17 at 21:00; Stop 03/07/17 at 20:59 Levothyroxine Sodium (Synthroid) 75 mcg DAILY@06 PO Last administered on 05:49; Start 02/06/17 at 06:00; Stop 03/08/17 at 05:59 Magnesium Hydroxide (Milk Of Magnesia) 30 ml DAILYPRN PRN PO CONSTIPATION Last administered on 02/05/17 18:00; Start 02/05/17 at 15:00; Stop 03/07/17 at 14 :59 Olmesartan (Benicar) 40 mg DAILY PO Last administered on 02/08/17 09:11; Start 02/06/17 at 09:00; Stop 03/08/17 at 08:59 Omeprazole (PriLOSEC) 40 mg DAILY PO Last administered on 02/08/17 09:11; Start 02/06/17 at 09:00; Stop 03/08/17 at 08:59 Senna/Docusate Sodium (Senokot S) 1 tab BID PO Last administered on 02/08/17 09:10; Start 02/05/17 at 21:00; Stop 03/07/17 at 20:59 Sertraline HCl (Zoloft) 50 mg DAILY PO Last administered on 02/08/17 09:10; Start 02/06/17 at 09:00; Stop 03/08/17 at 08:59 Simvastatin (Zocor) 20 mg MoWeFr@1700 PO Last administered on 02/05/17 18:01 ; Start 02/05/17 at 17:00; Stop 03/07/17 at 16:59 Sodium Biphosphate/ Sodium Phosphate (Fleet Enema) 1 ea DAILYPRN PRN [place] CONSTIPATION; Start 02/05/17 at 15:00; Stop 03/07/17 at 14:59 Tramadol HCl (Ultram) 50 mg Q4HP PRN PO MODERATE PAIN (PS 5-7) Last administered on 02/07/17 20:38; Start 02/05/17 at 15:00; Stop 02/12/17 at 14 :59 Tramadol HCl (Ultram) 100 mg Q6HP PRN PO SEVERE PAIN (PS 8-10) Last administered on 02/08/17 03:31; Start 02/05/17 at 15:00; Stop 02/12/17 at 14 :59 Vitamin D (Vitamin D) 1,000 units DAILY PO Last administered on 02/08/17 09: 11; Start 02/06/17 at 09:00; Stop 03/08/17 at 08:59 CHRISTIANO JARA MD Feb 08, 2017 11:34
--- NOTE | 2017-02-08 11:49 | CR.PDOC ---
[facility] Consultation Consultation Attending Dr Gamino PRIMARY CARE PHYSICIAN: Dr. Moisés Castro REASON FOR CONSULTATION/CHIEF COMPLAINT: Medical co-management HISTORY OF PRESENT ILLNESS: This is a 86-year-old female past medical history of hypertension, hyperlipidemia, GERD, symptomatic osteoarthritis for which she had a left total knee arthroplasty 02/03/17, transferred to the care of Dr Gamino, [facility] 02/05/17. Consulted for medical comanagement. Patient denies any chest pain, SOB, abdominal pain. No nausea/vomiting. Denies urinary complaints. States she feels tired after therapy. PMH/PSH HTN HLD OA tonsillectomy with adenoidectomy cholecystectomy appendectomy partial hysterectomy surgical repair of a broken ankle PHYSICAL EXAMINATION: General: No acute distress, laying comfortably in bed. HEENT: Moist mucous membranes. Neck: No JVD or lymphadenopathy Cardiac: RRR, No murmurs Pulm: Clear to auscultation b/l. No wheezing, rhonchi Abd: NT/ND + BS. Obese Ext: Left knee with bandage. Distal pulses intact. No erythema, warmth. Trace edema LLE. ASSESSMENT/PLAN: 1. Status post left knee arthroplasty. Management per orthopedics. Mgmt as per [facility]/DR Gamino. PT/OT as per [facility]/Dr Gamino. DVT prophylaxis as per Orthopedics. Coumadin. 2. Hypertension. BP 140s-160s systolic. Cont home regimen [id number] mg BID Benicar 40 mg daily Coreg 12.5 mg BID. Resume Lasix 20 mg daily. Monitor BMP. 4. History of GERD. Continue PPI. 5. Hypothyroidism. Continue Synthroid. 6. History of depression- Continue Zoloft. 7. HLD. Zocor. Vital Signs/I&O Vital Signs Date Time Temp Pulse Resp B/P (MAP) Pulse Ox O2 Delivery O2 Flow Rate FiO2 02/08/17 10:15 18 02/08/17 09:11 142/68 02/08/17 09:00 Room Air 02/08/17 06:00 97.5 68 93 02/06/17 08:00 2.0 I&O- Last 24 Hours up to 6 AM 02/09/17 06:00 Intake Total 360 ml Output Total 200 ml Balance 160 ml Laboratory Data Labs 24H Laboratory Tests 2 02/07/17 14:01: Nucleated Red Blood Cells % (auto) 0.0, Erythrocyte Sedimentation Rate 67H, Anion Gap 6L, Glomerular Filtration Rate > 60.0, Blood Urea Nitrogen 21H, Creatinine 0.66, Sodium Level 140, Potassium Level 3.7, Chloride Level 104, Carbon Dioxide Level 30, Calcium Level 8.3L, C-Reactive Protein, Quantitative 13.10H 02/08/17 06:14: Nucleated Red Blood Cells % (auto) 0.0, Prothrombin Time 16.1H, Prothromb Time International Ratio 1.26 CBC/BMP Laboratory Tests 02/07/17 14:01 Red Blood Count 3.45 L, Mean Corpuscular Volume 90.7, Mean Corpuscular Hemoglobin 29.9, Mean Corpuscular Hemoglobin Concent 32.9, Red Cell Distribution Width 13.4, Calcium Level 8.3 L 02/08/17 06:14 Red Blood Count 3.21 L, Mean Corpuscular Volume 90.7, Mean Corpuscular Hemoglobin 29.9, Mean Corpuscular Hemoglobin Concent 33.0, Red Cell Distribution Width 13.4 Allergies Coded Allergies: Codeine (Unverified Adverse Reaction, Mild, ABDOMINAL PAIN, 02/03/17) Shellfish Allergy (Verified Adverse Reaction, Mild, N/V, 01/21/17) Home Medications Scheduled (Multi Vitamin Daily) 1 Tab Tab, 1 TAB PO DAILY, (Reported) (Restasis) 0.05 % Emu, 0.05 % OU BID, (Reported) Ascorbic Acid (Vitamin C) 500 Mg Tab, 500 MG PO DAILY, (Reported) Aspirin (Aspirin 81) 81 Mg Tab, 81 MG PO DAILY, #30 (Reported) Carvedilol (Coreg) 12.5 Mg Tab, 12.5 MG PO BID, (Reported) Fish Oil (Fish Oil 1000 mg) 1 Cap Cap, 1 CAP PO BID, (Reported) Furosemide (Furosemide) 20 Mg Tab, 20 MG PO DAILY, (Reported) Hydralazine HCl (Hydralazine HCl) 10 Mg Tab, 10 MG PO BID, (Reported) Levothyroxine Sodium (Synthroid) 75 Mcg Tab, 75 MCG PO DAILY, (Reported) Olmesartan Medoxomil (Benicar) 40 Mg Tab, 40 MG PO DAILY, (Reported) Omeprazole (Omeprazole) 20 Mg Cap, 40 MG PO DAILY, (Reported) Sertraline Hcl (Zoloft) 100 Mg Tab, 50 MG PO DAILY, (Reported) Simvastatin - High Dose (Simvastatin) 40 Mg Tab, 20 MG PO 3XW, (Reported) takes @1700 mon, wed, fri Vitamin D (Vitamin D) 1,000 Unit Cap, 1,000 UNIT PO DAILY, (Reported) Warfarin Sod (Coumadin) 2.5 Mg Tab, 1 TAB PO ASDIRECTED, #90 MDD = 6 tabs Scheduled PRN Albuterol Sulfate (Proair Hfa) 108 Mcg/Act Aer, 108 MCG INH PRN PRN for SHORTNESS OF BREATH, (Reported) Fluocinolone Acetonide (Fluocinolone Acetonide) 0.01 % Cre, 0.01 % TOP PRN PRN for ITCHING, (Reported) applies to genital area and under breasts Tramadol HCl (Tramadol HCl) 50 Mg Tab, 50 MG PO Q6HP PRN for PAIN SCALE 6-10, # 40 Take 1 tab every 6 hours for moderate pain & take 2 tabs every 6hours for severe pain. Enid Bustos Feb 08, 2017 11:49
[2017-02-08 14:00] VITALS: BP 144/66
[2017-02-08] MEDS: FUROSEMIDE 20 MG TAB PO SCH (14:53)
[2017-02-08] MEDS ORDERED: WARFARIN SOD 5 MG TAB PO ONE (17:00)
[2017-02-08] MEDS: SIMVASTATIN 20 MG TAB PO SCH (18:02)
[2017-02-08 20:00] VITALS: BP 148/74
[2017-02-09 06:00] VITALS: BP 158/90
[2017-02-09] MEDS: LEVOTHYROXINE 75MCG TABLET (0.075MG) PO SCH (06:05)
[2017-02-09] MEDS: traMADol 50 MG TAB PO PRN ×3 (06:47→20:31)
[2017-02-09 07:21] LABS: INR 1.36
[2017-02-09 07:31] LABS: ANION GAP 7 MEQ/L (8-16); BLOOD UREA NITROGEN 14 MG/DL (7-18); CALCIUM LEVEL 8.3 MG/DL (8.8-10.2); CARBON DIOXIDE LEVEL 30 MEQ/L (21-32); CHLORIDE LEVEL 102 MEQ/L (98-107); CREATININE FOR GFR 0.56 MG/DL (0.55-1.02); GLOMERULAR FILTRATION RATE > 60.0 (>32); GLUCOSE, FASTING 102 MG/DL (83-110); POTASSIUM SERUM 3.5 MEQ/L (3.5-5.1); SODIUM LEVEL 139 MEQ/L (136-145)
[2017-02-09] MEDS: VITAMIN D 1,000 INTERNATIONAL UNITS TABLET PO SCH (08:32)
[2017-02-09] MEDS: CARVedilol 12.5 MG TAB PO SCH ×2 (08:32→20:30)
[2017-02-09] MEDS: ASCORBIC ACID 500 MG TAB PO SCH (08:32)
[2017-02-09] MEDS: FUROSEMIDE 20 MG TAB PO SCH (08:32)
[2017-02-09] MEDS: SERTRALINE HCL 50 MG TAB PO SCH (08:32)
[2017-02-09] MEDS: **hydrALAZINE** 10 MG TAB PO SCH ×2 (08:32→20:30)
[2017-02-09] MEDS: SENOKOT S TAB PO SCH ×2 (08:32→20:30)
[2017-02-09] MEDS: OLMESARTAN MEDOXOMIL 20 MG TAB (BENICAR) PO SCH (08:33)
[2017-02-09] MEDS: OMEPRAZOLE 20 MG CAP PO SCH (08:33)
--- NOTE | 2017-02-09 10:50 | IPNPDOC ---
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 The patient, however, had failed conservative management and elected total knee arthroplasty which Dr. Isma Joe performed on 02/03/2017. The patient did have a little bit of hypertension preoperatively which was treated by Dr. Gary with some intravenous (IV) hydralazine and then started on physical and occupational therapy and today did very well in physical therapy and occupational therapy, showing potential to do the three hours of therapy per day. Patient seen in Hallway walking with PT prior to exam in her room. She is without complaints, though she has some knee pain. ALLERGIES: See Below MEDICATIONS: Reviewed, see below. OBJECTIVE: VITAL SIGNS: Please see below. PHYSICAL EXAMINATION: GENERAL: Patient is a short, overweight, elderly, white female, who is alert and well oriented. She is pleasant and cooperative and appears to be in mild musculoskeletal distress favoring her left knee. HEENT: Normocephalic/atraumatic using glasses for visual correction. CARDIOVASCULAR: Regular rate and rhythm with normal S1 and S2. 2/4 bilateral radial pulses. LUNGS: All tanner clear to auscultation. ABDOMEN: Obese nontender with normal bowel sounds in all quadrants. NEUROLOGICAL: Patient alert and oriented 4. Speech is clear, coherent and appropriate. Memory is grossly intact. Affect is pleasant and cooperative. Motor shows 4+ to 5/5 bilateral upper and right lower extremities and 4 out of 5 left lower extremity. Balance is good and patient ambulating well with front wheeled walker. SKIN: TKA incision is healing with no drainage into the Optifoam AG dressing and improving color along the incision. LABORATORY DATA: Reviewed. Please see below. MICROBIOLOGY: Please see below. IMAGING: No new imaging. DVT prophylaxis ordered?: She'll on Coumadin with SHIRAZ hose. INR today is 1.36 with target 1.7-2.0. Ms. Gary has ordered Coumadin for today. ASSESSMENT AND PLAN: 1. 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 Patient with some hypertension elevation through the weekend but overall this is not interfered with her being able to attend therapy and perform well. Shouldn't pain management has been reasonably well controlled on tramadol. Patient doing extremely well in PT/OT and Room Privileges started and patient should meet Discharge to Home Goals with [facility] and PT needs by this week 02/11/17. 2. Hypertension: Episodically patient has been in the 160's for SBP. Patient continues on Apresoline and Coreg for now. We will continue to observe. 3. Anemia: H&H is 9.6 and 29.1% on 02/08/17. She is remained relatively stable through the weekend. We will continue to monitor. 4. C reactive protein: Currently 13.10, however wbc's only 5.8 thousand. We will continue observe angela sign of infection. TIME SPENT: Chart Review, examination and documentation require greater than 25 minutes. Allergies Coded Allergies: Codeine (Unverified Adverse Reaction, Mild, ABDOMINAL PAIN, 02/03/17) Shellfish Allergy (Verified Adverse Reaction, Mild, N/V, 01/21/17) Vital Signs Vital Signs Date Time Temp Pulse Resp B/P (MAP) Pulse Ox O2 Delivery O2 Flow Rate FiO2 02/09/17 09:00 Room Air 02/09/17 08:32 70 158/90 02/09/17 07:17 18 02/09/17 06:00 98.5 95 02/06/17 08:00 2.0 Laboratory Data CBC/BMP Laboratory Tests 02/09/17 06:55 Calcium Level 8.3 L Labs 24H Laboratory Tests 2 02/09/17 06:55: Prothrombin Time 17.0H, Prothromb Time International Ratio 1.36, Anion Gap 7L, Glomerular Filtration Rate > 60.0, Blood Urea Nitrogen 14, Creatinine 0.56, Sodium Level 139, Potassium Level 3.5, Chloride Level 102, Carbon Dioxide Level 30, Calcium Level 8.3L Current Medications Current Medications Current Medications Acetaminophen (Tylenol Tab) 650 mg Q6HP PRN PO MILD PAIN (PS 1-4) Last administered on 02/07/17t 05:39; Start 02/05/17 at 15:00; Stop 03/07/17 at 14 :59 Artificial Tears (Akwa Tears) 2 drop QIDP PRN OU DRY EYES; Start 02/05/17 at 15:45; Stop 03/07/17 at 15:44 Ascorbic Acid (Vitamin C) 500 mg DAILY PO Last administered on 02/09/17 08:32 ; Start 02/06/17 at 09:00; Stop 03/08/17 at 08:59 Carvedilol (COReg) 12.5 mg BID PO Last administered on 02/09/17 08:32; Start 02/05/17 at 21:00; Stop 03/07/17 at 20:59 Furosemide (Lasix) 20 mg DAILY PO Last administered on 02/09/17 08:32; Start 02/08/17 at 09:00; Stop 03/10/17 at 08:59 Hydralazine HCl (Apresoline) 10 mg BID PO Last administered on 02/09/17 08:32 ; Start 02/05/17 at 21:00; Stop 03/07/17 at 20:59 Levothyroxine Sodium (Synthroid) 75 mcg DAILY@06 PO Last administered on 06:05; Start 02/06/17 at 06:00; Stop 03/08/17 at 05:59 Magnesium Hydroxide (Milk Of Magnesia) 30 ml DAILYPRN PRN PO CONSTIPATION Last administered on 02/05/17 18:00; Start 02/05/17 at 15:00; Stop 03/07/17 at 14 :59 Olmesartan (Benicar) 40 mg DAILY PO Last administered on 02/09/17 08:33; Start 02/06/17 at 09:00; Stop 03/08/17 at 08:59 Omeprazole (PriLOSEC) 40 mg DAILY PO Last administered on 02/09/17 08:33; Start 02/06/17 at 09:00; Stop 03/08/17 at 08:59 Senna/Docusate Sodium (Senokot S) 1 tab BID PO Last administered on 02/09/17 08:32; Start 02/05/17 at 21:00; Stop 03/07/17 at 20:59 Sertraline HCl (Zoloft) 50 mg DAILY PO Last administered on 02/09/17 08:32; Start 02/06/17 at 09:00; Stop 03/08/17 at 08:59 Simvastatin (Zocor) 20 mg MoWeFr@1700 PO Last administered on 02/08/17 18:02 ; Start 02/05/17 at 17:00; Stop 03/07/17 at 16:59 Sodium Biphosphate/ Sodium Phosphate (Fleet Enema) 1 ea DAILYPRN PRN [place] CONSTIPATION; Start 02/05/17 at 15:00; Stop 03/07/17 at 14:59 Tramadol HCl (Ultram) 50 mg Q4HP PRN PO MODERATE PAIN (PS 5-7) Last administered on 02/07/17 20:38; Start 02/05/17 at 15:00; Stop 02/12/17 at 14 :59 Tramadol HCl (Ultram) 100 mg Q6HP PRN PO SEVERE PAIN (PS 8-10) Last administered on 02/09/17 06:47; Start 02/05/17 at 15:00; Stop 02/12/17 at 14 :59 Vitamin D (Vitamin D) 1,000 units DAILY PO Last administered on 02/09/17 08: 32; Start 02/06/17 at 09:00; Stop 03/08/17 at 08:59 CHRISTIANO JARA MD Feb 09, 2017 10:50
--- NOTE | 2017-02-09 13:37 | IPNPDOC ---
Date Seen The patient was seen on 02/09/17. Progress Note This is a 86-year-old female past medical history of hypertension, hyperlipidemia, GERD, symptomatic osteoarthritis for which she had a left total knee arthroplasty 02/03/17, transferred to the care of [facility] 02/05/17. Consulted for medical comanagement. Patient denies any chest pain, SOB, abdominal pain. No nausea/vomiting. Denies urinary complaints. States she feels tired after therapy. PMH/PSH HTN HLD OA tonsillectomy with adenoidectomy cholecystectomy appendectomy partial hysterectomy surgical repair of a broken ankle PHYSICAL EXAMINATION: General: No acute distress, laying comfortably in bed. HEENT: Moist mucous membranes. Neck: No JVD or lymphadenopathy Cardiac: RRR, No murmurs Pulm: Clear to auscultation b/l. No wheezing, rhonchi Abd: NT/ND + BS. Obese Ext: Left knee with bandage. Distal pulses intact. No erythema, warmth. Trace edema LLE. ASSESSMENT/PLAN: 1. Status post left knee arthroplasty. Management per orthopedics. Mgmt as per [facility]/DR Gamino. PT/OT as per [facility]/Dr Gamino. DVT prophylaxis as per Orthopedics. Coumadin. 2. Hypertension. Cont home regimen [id number] mg BID Benicar 40 mg daily Coreg 12.5 mg BID. Lasix 20 mg daily. Restarted 02/08/17. Monitor BMP. Monitor BP trend. 4. History of GERD. Continue PPI. 5. Hypothyroidism. Continue Synthroid. 6. History of depression- Continue Zoloft. 7. HLD. Zocor. VS, I&O, 24H, Fishbone Vital Signs/I&O Vital Signs Date Time Temp Pulse Resp B/P (MAP) Pulse Ox O2 Delivery O2 Flow Rate FiO2 02/09/17 13:15 18 02/09/17 09:00 Room Air 02/09/17 08:32 70 158/90 02/09/17 06:00 98.5 95 02/06/17 08:00 2.0 I&O- Last 24 Hours up to 6 AM 02/10/17 06:00 Intake Total 360 ml Output Total 525 ml Balance -165 ml Laboratory Data 24H LABS Laboratory Tests 2 02/09/17 06:55: Prothrombin Time 17.0H, Prothromb Time International Ratio 1.36, Anion Gap 7L, Glomerular Filtration Rate > 60.0, Blood Urea Nitrogen 14, Creatinine 0.56, Sodium Level 139, Potassium Level 3.5, Chloride Level 102, Carbon Dioxide Level 30, Calcium Level 8.3L CBC/BMP Laboratory Tests 02/09/17 06:55 Calcium Level 8.3 L Enid Bustos Feb 09, 2017 13:37
[2017-02-09 14:00] VITALS: BP 138/62
[2017-02-09] MEDS ORDERED: WARFARIN SOD 5 MG TAB PO ONE (17:00)
[2017-02-09 20:00] VITALS: BP 168/74
[2017-02-09 22:00] VITALS: BP 152/80
[2017-02-10] MEDS: LEVOTHYROXINE 75MCG TABLET (0.075MG) PO SCH (05:43)
[2017-02-10] MEDS: traMADol 50 MG TAB PO PRN ×3 (05:44→21:33)
[2017-02-10 06:00] VITALS: BP 152/70
[2017-02-10 07:45] LABS: MEAN CORPUSCULAR HEMOGLOBIN 29.3 pg (27.0-33.0); MEAN CORPUSCULAR HGB CONC 32.5 g/dl (32.0-36.5); MEAN CORPUSCULAR VOLUME 90.3 fl (80.0-96.0); PLATELET COUNT, AUTOMATED 289 10^3/uL (150-450); RED CELL DISTRIBUTION WIDTH 13.2 % (11.5-14.5); WHITE BLOOD COUNT 5.8 10^3/uL (4.0-10.0)
[2017-02-10 07:55] LABS: INR 1.7
[2017-02-10 08:17] LABS: ANION GAP 8 MEQ/L (8-16); BLOOD UREA NITROGEN 12 MG/DL (7-18); CALCIUM LEVEL 8.3 MG/DL (8.8-10.2); CARBON DIOXIDE LEVEL 30 MEQ/L (21-32); CHLORIDE LEVEL 102 MEQ/L (98-107); CREATININE FOR GFR 0.54 MG/DL (0.55-1.02); GLOMERULAR FILTRATION RATE > 60.0 (>32); GLUCOSE, FASTING 101 MG/DL (83-110); POTASSIUM SERUM 3.8 MEQ/L (3.5-5.1); SODIUM LEVEL 140 MEQ/L (136-145)
[2017-02-10] MEDS: **hydrALAZINE** 10 MG TAB PO SCH ×2 (09:06→21:33)
[2017-02-10] MEDS: OLMESARTAN MEDOXOMIL 20 MG TAB (BENICAR) PO SCH (09:06)
[2017-02-10] MEDS: SERTRALINE HCL 50 MG TAB PO SCH (09:06)
[2017-02-10] MEDS: VITAMIN D 1,000 INTERNATIONAL UNITS TABLET PO SCH (09:06)
[2017-02-10] MEDS: FUROSEMIDE 20 MG TAB PO SCH (09:06)
[2017-02-10] MEDS: SENOKOT S TAB PO SCH ×2 (09:06→21:31)
[2017-02-10] MEDS: ASCORBIC ACID 500 MG TAB PO SCH (09:06)
[2017-02-10] MEDS: OMEPRAZOLE 20 MG CAP PO SCH (09:06)
[2017-02-10] MEDS: CARVedilol 12.5 MG TAB PO SCH ×2 (09:07→21:33)
[2017-02-10] MEDS: ACETAMINOPHEN TAB 650MG DOSE (2X325MG) PO PRN (09:08)
[2017-02-10] MEDS ORDERED: TRAM50TA2 PO (10:54)
--- NOTE | 2017-02-10 12:05 | IPNPDOC ---
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 The patient, however, had failed conservative management and elected total knee arthroplasty which Dr. Isma Joe performed on 02/03/2017. The patient did have a little bit of hypertension preoperatively which was treated by Dr. Gary with some intravenous (IV) hydralazine and then started on physical and occupational therapy and today did very well in physical therapy and occupational therapy, showing potential to do the three hours of therapy per day. Patient seen in Gym with OT and in her room. She is without complaints, though she has some knee pain. She is looking forward to discharge to home tomorrow. ALLERGIES: See Below MEDICATIONS: Reviewed, see below. OBJECTIVE: VITAL SIGNS: Please see below. PHYSICAL EXAMINATION: GENERAL: Patient is a short, overweight, elderly, white female, who is alert and well oriented. She is pleasant and cooperative and appears to be in mild musculoskeletal distress favoring her left knee. HEENT: Normocephalic/atraumatic using glasses for visual correction. CARDIOVASCULAR: Regular rate and rhythm with normal S1 and S2. 2/4 bilateral radial pulses. LUNGS: All tanner clear to auscultation. ABDOMEN: Obese nontender with normal bowel sounds in all quadrants. NEUROLOGICAL: Patient alert and oriented 4. Speech is clear, coherent and appropriate. Memory is grossly intact. Affect is pleasant and cooperative. Motor shows 4+ to 5/5 bilateral upper and right lower extremities and 4 out of 5 left lower extremity. Balance is good and patient ambulating well with front wheeled walker. See attached PT/OT notes. SKIN: TKA incision is healing with no drainage into the Optifoam AG dressing and improving color along the incision. LABORATORY DATA: Reviewed. Please see below. MICROBIOLOGY: Please see below. IMAGING: No new imaging. DVT prophylaxis ordered?: She'll on Coumadin with SHIRAZ hose. INR today is 1.70 with target 1.7-2.0. Ms. Gary has ordered Coumadin for today. ASSESSMENT AND PLAN: 1. 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 Patient with some hypertension elevation through the weekend but overall this is not interfered with her being able to attend therapy and perform well. Shouldn't pain management has been reasonably well controlled on tramadol. Patient doing extremely well in PT/OT and Room Privileges started and patient has met Discharge to Home Goals with HomeCare Nursing and PT needs at discharge tomorrow 02/11/17. 2. Hypertension: Episodically patient has been in the 160's for SBP. Patient continues on Apresoline and Coreg for now. 3. Anemia: H&H is 10.0 and 30.8% on 02/10/17. She is remained relatively stable through the weekend. 4. C reactive protein: Currently 2.35 which is much lower, wbc's only 5.8 thousand. TIME SPENT: Chart Review, examination and documentation require greater than 25 minutes. Patient: Jihan Cannon : 1930 Age/Sex: 86/F Unit#: [id number] Room/Bed: M4145/01 User: Alyse William PT PT Date: 02/10/17 09:18 Type: PT Progress Note Time In * 08:00 Time Out * 09:05 PT Treatment Time-Minutes * 65 mins Type of Therapy Provided * Individual Precautions * Fall * WBAT Unit * Acute Inpatient Rehab Pain Start of Session * 6 Pain End of Session * 8 Pain Comment * pt noting 8/10 pain after completing ROM activities pt after prompting. Pt states she has had pain meds this morning. Nursing is notified. Subjective * Pt was in good spirits and willing to participate in all that was asked of her at this time. Cognition * Within Normal Limits Cognition Comments * alert and oriented x 3 Supine to Sit * Modified Independant Sit to Supine * Modified Independent Rolling * Modified Independent Bed Mobility Notes * pt has HOB elevated and bedrails she uses occasionally Sit to Stand * Modified Independent Stand to Sit * Modified Independent Bed to Chair * Modified Independent Chair to Bed * Modified Independent Toilet/Commode * Modified Independent Transfer Training Notes * using chair arms appropriately. to her RW Sit-Static * G Sit-Dynamic * G Stand-Static * G Stand-Dynamic * G Balance Training Note * Good balance throughout tx. Ambulation Distance * 200 Feet Ambulation Level of Assist * Modified Independent Assistive Device Used * Rolling Walker * Gait Belt Weight BearingStatus * WBAT Left Able to Maintain Weight Bearing Status * Yes Gait Training Note * Using proper technique. Wheelchair Mobility Level of Assist * Not Tested Number of Stairs Completed * 6 Stairs Railing * Yes Railing Side * Left Level of Assist for Stairs * Modified Independent Weight Bearing Status on Stairs * WBAT Left Able to Maintain Weight Bearing Status on Stairs * Yes Stair Training Note * pt using left HR and side stepping up the stairs. she states she cannot reach both sides however she completes well with no increased assitance needed. A. Roll Left and Right: * 06.Independent B. Sit to Lying: * 06.Independent C. Lying to Sitting on Side of Bed: * 06.Independent D. Sit to Stand: * 06.Independent E. Chair/Had-ks-Jlyel Transfer: * 06.Independent F. Toilet Transfer: * 06.Independent G. Car Transfer: * 05.Setup/clean up Asst H. Does the patient walk?: * 2. Yes I. Walk 10 Feet: * 06.Independent J. Walk 50' with Two Turns: * 06.Independent K. Walk 150 Feet: * 06.Independent L. Walking 10' on uneven surfaces: * 06.Independent M. 1 Step (curb): * 06.Independent N. 4 Steps (with or without railing): * 06.Independent O. 12 Steps (with or without railing): * 88.Not Attempted P. Picking up Object from the Floor (from a standing): * 06.Independent Q. Does the patient use a w/c (other than just transport): * 0. No Lower Extremity Exercised * Bilateral Sitting Exercises * Other Other Sitting Exercises * nustep level 6 for 10 minutes Therapeutic Exercises Note * pt getting knee consistently to 90* of extension, is missing terminal extension today PT Interventions * Gait Training * Therapeutic Excercise * Functional Training * Bed Mobility * Safety/Precautions * Pt./Family Education * D/C Needs PT Progress Note * Patient is demonstrating functional transfers and ambulation at Mod I level; progressing well and tolerating therapy with good motivation. pt left supine in bed at this time with her call stokes. nursing is notified. Discharge Recommendations * Home Safe for discharge at this time * Yes Patient: Jihan Cannon : 1930 Age/Sex: 86/F Unit#: [id number] Room[facility] [facility] [place] User: Sydnie Cohn OT OT Date: 02/09/17 12:00 Type: OT Progress Time In * 11:15 Time Out * 11:45 OT Treatment Time-Minutes * 30 mins Type of Therapy Provided * Individual Precautions * Fall * WBAT Unit * Acute Inpatient Rehab Pain Start of Session * 6 Pain End of Session * 7 Pain Comment * Increased pain with mobility this session. Subjective * Pt sitting in chair upon OT arrival, agreeable to tx. Cognition * Within Normal Limits Sit to Stand * Modified Independent Stand to Sit * Modified Independent Functional Transfer Notes: * Mod I for all functional transfers and ambulation using RW. Meal Preparation/Home Management * Modified Independent ADL Training Note * Pt completed simulated kitchen task and demonstrates ability to complete kitchen mobility with mod I. Pt demonstrates gathering items from cabinets, refridgerator, and pin drafter operator, as well as transferring items throughout kitchen while using RW. Pt demonstrates good safety awareness throughout task. Sit-Static * G Sit-Dynamic * G Stand-Static * G Stand-Dynamic * G Balance Training Note * Good balance throughout tx. OT Intervention Note * Pt ambulated 105' to training kitchen with mod I. Pt then completed kitchen mobility task with mod I, see note above. Pt returned to room and sat in chair at bedside awaiting lunch. All needs met, call light in reach. Discharge Recommendations * Home Safe for discharge at this time * Yes Allergies Coded Allergies: Codeine (Unverified Adverse Reaction, Mild, ABDOMINAL PAIN, 02/03/17) Shellfish Allergy (Verified Adverse Reaction, Mild, N/V, 01/21/17) Vital Signs Vital Signs Date Time Temp Pulse Resp B/P (MAP) Pulse Ox O2 Delivery O2 Flow Rate FiO2 02/10/17 09:07 65 152/70 02/10/17 06:14 18 02/10/17 06:00 97.9 97 Room Air 02/06/17 08:00 2.0 Laboratory Data CBC/BMP Laboratory Tests 02/10/17 07:22 Red Blood Count 3.41 L, Mean Corpuscular Volume 90.3, Mean Corpuscular Hemoglobin 29.3, Mean Corpuscular Hemoglobin Concent 32.5, Red Cell Distribution Width 13.2, Calcium Level 8.3 L Labs 24H Laboratory Tests 2 02/10/17 07:22: Nucleated Red Blood Cells % (auto) 0.0, Prothrombin Time 20.5H, Prothromb Time International Ratio 1.70, Anion Gap 8, Glomerular Filtration Rate > 60.0, Blood Urea Nitrogen 12, Creatinine 0.54L, Sodium Level 140, Potassium Level 3.8, Chloride Level 102, Carbon Dioxide Level 30, Calcium Level 8.3L Current Medications Current Medications Current Medications Acetaminophen (Tylenol Tab) 650 mg Q6HP PRN PO MILD PAIN (PS 1-4) Last administered on 02/10/17 09:08; Start 02/05/17 at 15:00; Stop 03/07/17 at 14 :59 Artificial Tears (Akwa Tears) 2 drop QIDP PRN OU DRY EYES; Start 02/05/17 at 15:45; Stop 03/07/17 at 15:44 Ascorbic Acid (Vitamin C) 500 mg DAILY PO Last administered on 02/10/17 09:06 ; Start 02/06/17 at 09:00; Stop 03/08/17 at 08:59 Carvedilol (COReg) 12.5 mg BID PO Last administered on 02/10/17 09:07; Start 02/05/17 at 21:00; Stop 03/07/17 at 20:59 Furosemide (Lasix) 20 mg DAILY PO Last administered on 02/10/17 09:06; Start 02/08/17 at 09:00; Stop 03/10/17 at 08:59 Hydralazine HCl (Apresoline) 10 mg BID PO Last administered on 02/10/17 09:06 ; Start 02/05/17 at 21:00; Stop 03/07/17 at 20:59 Levothyroxine Sodium (Synthroid) 75 mcg DAILY@06 PO Last administered on 05:43; Start 02/06/17 at 06:00; Stop 03/08/17 at 05:59 Magnesium Hydroxide (Milk Of Magnesia) 30 ml DAILYPRN PRN PO CONSTIPATION Last administered on 02/05/17 18:00; Start 02/05/17 at 15:00; Stop 03/07/17 at 14 :59 Olmesartan (Benicar) 40 mg DAILY PO Last administered on 02/10/17 09:06; Start 02/06/17 at 09:00; Stop 03/08/17 at 08:59 Omeprazole (PriLOSEC) 40 mg DAILY PO Last administered on 02/10/17 09:06; Start 02/06/17 at 09:00; Stop 03/08/17 at 08:59 Senna/Docusate Sodium (Senokot S) 1 tab BID PO Last administered on 02/10/17 09:06; Start 02/05/17 at 21:00; Stop 03/07/17 at 20:59 Sertraline HCl (Zoloft) 50 mg DAILY PO Last administered on 02/10/17 09:06; Start 02/06/17 at 09:00; Stop 03/08/17 at 08:59 Simvastatin (Zocor) 20 mg [id number]@[id number] PO Last administered on 02/08/17 18:02 ; Start 02/05/17 at 17:00; Stop 03/07/17 at 16:59 Sodium Biphosphate/ Sodium Phosphate (Fleet Enema) 1 ea DAILYPRN PRN DE CONSTIPATION; Start 02/05/17 at 15:00; Stop 03/07/17 at 14:59 Tramadol HCl (Ultram) 50 mg Q4HP PRN PO MODERATE PAIN (PS 5-7) Last administered on 02/07/17 20:38; Start 02/05/17 at 15:00; Stop 02/12/17 at 14 :59 Tramadol HCl (Ultram) 100 mg Q6HP PRN PO SEVERE PAIN (PS 8-10) Last administered on 02/10/17 05:44; Start 02/05/17 at 15:00; Stop 02/12/17 at 14 :59 Vitamin D (Vitamin D) 1,000 units DAILY PO Last administered on 02/10/17 09: 06; Start 02/06/17 at 09:00; Stop 03/08/17 at 08:59 CHRISTIANO JARA MD Feb 10, 2017 12:05
[2017-02-10 14:00] VITALS: BP 158/64
[2017-02-10] MEDS: SIMVASTATIN 20 MG TAB PO SCH (16:03)
[2017-02-10] MEDS ORDERED: WARFARIN SOD 5 MG TAB PO ONE (17:00)
[2017-02-10 20:00] VITALS: BP 158/68
[2017-02-11] MEDS: LEVOTHYROXINE 75MCG TABLET (0.075MG) PO SCH (05:27)
[2017-02-11 05:45] VITALS: BP 156/72
[2017-02-11 07:33] LABS: INR 1.96
[2017-02-11 07:49] LABS: ANION GAP 8 MEQ/L (8-16); BLOOD UREA NITROGEN 14 MG/DL (7-18); CALCIUM LEVEL 8.2 MG/DL (8.8-10.2); CARBON DIOXIDE LEVEL 30 MEQ/L (21-32); CHLORIDE LEVEL 103 MEQ/L (98-107); CREATININE FOR GFR 0.55 MG/DL (0.55-1.02); GLOMERULAR FILTRATION RATE > 60.0 (>32); GLUCOSE, FASTING 99 MG/DL (83-110); POTASSIUM SERUM 3.8 MEQ/L (3.5-5.1); SODIUM LEVEL 141 MEQ/L (136-145)
[2017-02-11] MEDS: **hydrALAZINE** 10 MG TAB PO SCH (08:32)
[2017-02-11] MEDS: VITAMIN D 1,000 INTERNATIONAL UNITS TABLET PO SCH (08:32)
[2017-02-11 08:33] VITALS: BP 156/72
[2017-02-11] MEDS: OLMESARTAN MEDOXOMIL 20 MG TAB (BENICAR) PO SCH (08:33)
[2017-02-11] MEDS: SERTRALINE HCL 50 MG TAB PO SCH (08:33)
[2017-02-11] MEDS: ASCORBIC ACID 500 MG TAB PO SCH (08:33)
[2017-02-11] MEDS: OMEPRAZOLE 20 MG CAP PO SCH (08:33)
[2017-02-11] MEDS: FUROSEMIDE 20 MG TAB PO SCH (08:33)
[2017-02-11] MEDS: CARVedilol 12.5 MG TAB PO SCH (08:34)
[2017-02-11] MEDS: SENOKOT S TAB PO SCH (08:34)
[2017-02-11] MEDS ORDERED: COUM2.5T17 PO (09:04)
[2017-02-11] MEDS: traMADol 50 MG TAB PO PRN (10:55)
--- NOTE | 2017-02-12 19:33 | PMRDS ---
DATE OF ADMISSION: 02/05/2017 DATE OF DISCHARGE: 02/11/2017 DISCHARGE DIAGNOSIS: Rehabilitation of left total knee arthroplasty secondary to end-stage degenerative joint disease and failure of conservative therapy. SECONDARY DIAGNOSES: Hypothyroidism, anemia, hypertension. HISTORY: Patient is a short, elderly White female who is right handed and has had progressive problems with ambulation mobility secondary to her knee. She has had some chronic knee problems for many years due to bilateral Braun's cysts. However this has been exacerbated by the arthritis in the left knee greater than the right knee. In consultation with Dr. Isma Joe, she elevated to have left total knee arthroplasty on 02/03/2017. She had some postoperative anemia and going in to it she did have an episode of malignant hypertension with IV hydralazine. She has had some periods of elevated blood pressure throughout the course of this admission on episodic basis. However patient has been highly motivated and participating well in physical and occupational therapy. Her GERD has also been under control and she has not had any problems with her dry eye problem. No procedures performed during this admission. DIAGNOSTIC AND LABORATORY DATA: Patient with anemia showing a hemoglobin and hematocrit of 9.3/28.7% on admission and most recent is 10.0 and 30.8%. She has also had some elevation early on of BUN at 21, otherwise normal electrolytes throughout admission and BUN is now 14. Calcium on admission was 7.8 and is now 8.2. The albumin is reduced at 2.5 on admission. C-reactive protein elevated at 13.10 and AST and ALT elevated at 46 and 133 at time of admission. Patient has shown no liver dysfunction and has proceeded very well in her healing. HOSPITAL COURSE: Patient admitted on 02/05/2017 for musculoskeletal rehabilitation. Pain management has been adequate and patient has progressed from moderate assist and lower body dressing and assist in bed mobility to being modified independent and bed mobility and all transfers and lower body dressing independent and grooming and upper body dressing and eating with improvement of standing dynamic balance good. In physical therapy patient ambulated 85 feet on admission with the front wheeled walker and supervision touch ambulation to ambulating greater than 200 feet modified independent doing 6 stairs with a railing on the left also modified independent which allows her to meet her discharge goals. DISCHARGE MEDICATIONS: - tramadol 50 mg 1-2 tablets for moderate to severe pain every 6 hours - Coumadin 2.5 mg daily until otherwise directed - ProAir HFA 1-2 puffs as needed every 2 hours for shortness of breath - vitamin C 500 mg daily - aspirin 81 mg daily - Coreg 12.5 mg twice a day for hypertension - fish oil 1000 mg twice a day - fluocinolone 0.1% cream topically as needed itching - Lasix 20 mg daily - hydralazine 10 mg twice a day - Synthroid 75 mcg daily - multivitamin 1 tablet daily - Benicar 40 mg daily - omeprazole 20 mg daily - Restasis 0.05% 1 drop OU twice a day - Sertraline 50 mg daily - simvastatin 20 mg three times per week - vitamin D 1000 units daily COMPLICATIONS: None. DISCHARGE PLANS AND INSTRUCTION: Patient is discharged to home today. With issued front wheeled walker. She will followup on 02/17/2017 for staple removal at [facility] and to followup with her primary care, Dr. Moisés Castro within 2 weeks for review of her general medications and health. Patient will have home care nursing for Wednesday, Wednesday, Wednesday, prothrombin time INR checked with results to go to [facility], Dr. Joe or Mrs. Castro, nurse practitioner and ongoing physical therapy. TIME SPENT ON DISCHARGE: Greater than 35 minutes.
== END 2017-02-11 11:55 | disposition home health service (06) | DRG 561 ==
LOC: M PM&R 15:50
PROVIDERS: ADMIT Physical Medicine & Rehabilitation; ATTEND Physical Medicine & Rehabilitation
DX: Z47.1 Aftercare following joint replacement surgery (principal); I10 Essential (primary) hypertension; D64.9 Anemia, unspecified; E78.00 Pure hypercholesterolemia, unspecified; E03.9 Hypothyroidism, unspecified; R06.03 Acute respiratory distress; E78.5 Hyperlipidemia, unspecified; K21.9 Gastro-esophageal reflux disease without esophagitis; F32.9 Major depressive disorder, single episode, unspecified; H04.123 Dry eye syndrome of bilateral lacrimal glands; E66.3 Overweight; Z68.35 Body mass index [BMI] 35.0-35.9, adult; Z96.652 Presence of left artificial knee joint

== ENCOUNTER → 2017-02-15 | Outpatient (REF) | payer MEDICARE, OTHER ==
[~2017-02-15] MED LIST changes: +COUM2.5T17 PO; +TRAM50TA2 PO
[2017-02-15 14:08] LABS: INR 2.97
== END ==
LOC: M SHH 13:34
PROVIDERS: ATTEND Nurse Practitioner Family
DX: Z51.81 Encounter for therapeutic drug level monitoring (principal); Z79.01 Long term (current) use of anticoagulants

== ENCOUNTER → 2017-02-25 | Outpatient (REF) | payer MEDICARE, OTHER ==
[2017-02-25 15:30] LABS: INR 1.19
== END ==
LOC: M LAB REF 15:06
PROVIDERS: ATTEND Orthopaedic Surgery
DX: Z51.81 Encounter for therapeutic drug level monitoring (principal); Z79.01 Long term (current) use of anticoagulants

== ENCOUNTER → 2017-03-01 | Outpatient (REF) | payer MEDICARE, OTHER ==
[2017-03-01 14:10] LABS: INR 1.26
== END ==
LOC: M SHH 11:42
PROVIDERS: ATTEND Nurse Practitioner Family
DX: Z51.81 Encounter for therapeutic drug level monitoring (principal); Z79.01 Long term (current) use of anticoagulants

== ENCOUNTER → 2017-03-04 | Outpatient (REF) | payer MEDICARE, OTHER ==
[2017-03-04 16:24] LABS: INR 1.36
== END ==
LOC: M SHH 15:40
PROVIDERS: ATTEND Nurse Practitioner Family
DX: Z51.81 Encounter for therapeutic drug level monitoring (principal); Z79.01 Long term (current) use of anticoagulants

== ENCOUNTER → 2017-05-31 | Outpatient (REF) | payer MEDICARE, OTHER ==
[2017-05-31 12:19] LABS: ESTIMATED AVERAGE GLUCOSE 123 MG/DL (60-110); HEMOGLOBIN A1c 5.9 %
[2017-05-31 12:27] LABS: ALBUMIN 3.5 GM/DL (3.2-5.2); ALBUMIN/GLOBULIN RATIO 1.17 (1.00-1.93); ALKALINE PHOSPHATASE 70 U/L (45-117); ALT/SGPT 22 U/L (12-78); ANION GAP 7 MEQ/L (8-16); AST/SGOT 18 U/L (7-37); BILIRUBIN,TOTAL 0.4 MG/DL (0.2-1.0); BLOOD UREA NITROGEN 19 MG/DL (7-18); CALCIUM LEVEL 8.7 MG/DL (8.8-10.2); CARBON DIOXIDE LEVEL 29 MEQ/L (21-32); CHLORIDE LEVEL 108 MEQ/L (98-107); CREATININE FOR GFR 0.68 MG/DL (0.55-1.30); GLOMERULAR FILTRATION RATE > 60.0 (>32); GLUCOSE, FASTING 94 MG/DL (70-100); MAGNESIUM LEVEL 2.1 MG/DL (1.8-2.4); POTASSIUM SERUM 3.9 MEQ/L (3.5-5.1); SODIUM LEVEL 144 MEQ/L (136-145); THYROID STIMULATING HORMONE 0.915 uIU/ML (0.358-3.740); TOTAL PROTEIN 6.5 GM/DL (6.4-8.2)
== END ==
LOC: M SFHCPLAZ 09:01
DX: I10 Essential (primary) hypertension (principal); R73.01 Impaired fasting glucose; E03.9 Hypothyroidism, unspecified
CPT/HCPCS: 83735

== ENCOUNTER → 2017-06-28 | Outpatient (REF) | payer MEDICARE, OTHER ==
[2017-06-28 15:53] LABS: BASO # 0.1 10^3/uL (0.0-0.2); EOS # 0.1 10^3/uL (0.0-0.50); EOS % 2.3 % (0.0-3.0); HEMATOCRIT 38.2 % (36.0-47.0); HEMOGLOBIN 12.2 g/dl (12.0-16.0); IMMATURE GRANULOCYTE % 0.3 % (0-3.0); LYMPH # 1.6 10^3/uL (1.5-4.5); LYMPH % 26.1 % (24.0-44.0); MEAN CORPUSCULAR HEMOGLOBIN 28.3 pg (27.0-33.0); MEAN CORPUSCULAR HGB CONC 31.9 g/dl (32.0-36.5); MEAN CORPUSCULAR VOLUME 88.6 fl (80.0-96.0); MONO # 0.7 10^3/uL (0.0-0.8); MONO % 11.6 % (0.0-5.0); NEUTROPHILS # 3.6 10^3/uL (1.8-7.7); NEUTROPHILS % 58.7 % (36.0-66.0); PLATELET COUNT, AUTOMATED 321 10^3/uL (150-450); RED BLOOD COUNT 4.31 10^6/uL (4.00-5.40); RED CELL DISTRIBUTION WIDTH 13.1 % (11.5-14.5); WHITE BLOOD COUNT 6.1 10^3/uL (4.0-10.0)
[2017-06-28 17:24] LABS: ERYTHROCYTE SEDIMENTATION RATE 8 mm/hr (0-42)
== END ==
LOC: M LABDRAW1 11:30
DX: Z96.652 Presence of left artificial knee joint (principal)
CPT/HCPCS: 85025

== ENCOUNTER → 2017-09-01 | Outpatient (REF) | payer MEDICARE, OTHER ==
[2017-09-01 16:42] LABS: APPEARANCE, URINE CLOUDY (CLEAR); BACTERIA, URINE AUTO 1+ (NEGATIVE); BILIRUBIN, URINE AUTO NEGATIVE (NEGATIVE); BLOOD, URINE BLOOD NEGATIVE (NEGATIVE); COLOR, URINE YELLOW (YELLOW); GLUCOSE, URINE (UA) AUTO NEGATIVE (NEGATIVE); KETONE, URINE AUTO NEGATIVE (NEGATIVE); LEUKOCYTE ESTERASE, URINE AUTO 3+ (NEGATIVE); MUCUS, URINE SMALL (NEGATIVE); NITRITE, URINE AUTO POSITIVE (NEGATIVE); PROTEIN, URINE AUTO NEGATIVE (NEGATIVE); RBC, URINE AUTO 16 /HPF (0-3); SQUAMOUS EPITHELIAL CELL UR AU 0 /HPF (0-6); TRANSITIONAL EPITHELIAL AUTO <1 /HPF; UROBILINOGEN, URINE AUTO 0.2 mg/dL (0.0-2.0); WBC, URINE AUTO TNTC /HPF (0-3)
== END ==
LOC: M SFHCPLAZ 10:15
DX: R30.0 Dysuria (principal)
CPT/HCPCS: 81001

== ENCOUNTER → 2017-09-27 | Outpatient (REF) | payer MEDICARE, OTHER ==
[2017-09-27 12:34] LABS: HEMATOCRIT 36.2 % (36.0-47.0); HEMOGLOBIN 11.5 g/dl (12.0-15.5); MEAN CORPUSCULAR HEMOGLOBIN 28.6 pg (27.0-33.0); MEAN CORPUSCULAR HGB CONC 31.8 g/dl (32.0-36.5); PLATELET COUNT, AUTOMATED 227 10^3/uL (150-450); RED BLOOD COUNT 4.02 10^6/uL (4.00-5.40); RED CELL DISTRIBUTION WIDTH 14.2 % (11.5-14.5); WHITE BLOOD COUNT 4.1 10^3/uL (4.0-10.0)
[2017-09-27 12:39] LABS: ANION GAP 6 MEQ/L (8-16); BLOOD UREA NITROGEN 15 MG/DL (7-18); CALCIUM LEVEL 8.9 MG/DL (8.8-10.2); CARBON DIOXIDE LEVEL 28 MEQ/L (21-32); CHLORIDE LEVEL 110 MEQ/L (98-107); CREATININE FOR GFR 0.79 MG/DL (0.55-1.30); GLOMERULAR FILTRATION RATE > 60.0 (>32); GLUCOSE, FASTING 102 MG/DL (70-100); POTASSIUM SERUM 4.2 MEQ/L (3.5-5.1); SODIUM LEVEL 144 MEQ/L (136-145)
== END ==
LOC: M SFHCPLAZ 08:48
DX: Z01.818 Encounter for other preprocedural examination (principal); M25.562 Pain in left knee; I10 Essential (primary) hypertension
CPT/HCPCS: 80048

== ENCOUNTER → 2017-12-06 | Outpatient (REF) | payer MEDICARE, OTHER ==
[2017-12-06 12:33] LABS: ALBUMIN 3.6 GM/DL (3.2-5.2); ALBUMIN/GLOBULIN RATIO 1.24 (1.00-1.93); ALKALINE PHOSPHATASE 65 U/L (45-117); ALT/SGPT 27 U/L (12-78); ANION GAP 9 MEQ/L (8-16); AST/SGOT 17 U/L (7-37); BILIRUBIN,TOTAL 0.4 MG/DL (0.2-1.0); BLOOD UREA NITROGEN 17 MG/DL (7-18); CALCIUM LEVEL 8.8 MG/DL (8.8-10.2); CARBON DIOXIDE LEVEL 27 MEQ/L (21-32); CHLORIDE LEVEL 108 MEQ/L (98-107); CHOLESTEROL LEVEL 146 MG/DL (<200); CHOLESTEROL RISK RATIO 2.654 (<5); CREATININE FOR GFR 0.84 MG/DL (0.55-1.30); GLOMERULAR FILTRATION RATE > 60.0 (>32); GLUCOSE, FASTING 97 MG/DL (70-100); HDL CHOLESTEROL 55 MG/DL (>40); LDL CHOLESTEROL 73.8 MG/DL (<100); MAGNESIUM LEVEL 2.2 MG/DL (1.8-2.4); NON-HDL-C 91 MG/DL; POTASSIUM SERUM 4.3 MEQ/L (3.5-5.1); SODIUM LEVEL 144 MEQ/L (136-145); TOTAL PROTEIN 6.5 GM/DL (6.4-8.2); TRIGLYCERIDES LEVEL 86 MG/DL (<150)
== END ==
LOC: M SFHCPLAZ 08:22
DX: I10 Essential (primary) hypertension (principal); E78.00 Pure hypercholesterolemia, unspecified
CPT/HCPCS: 83735

== ENCOUNTER → 2018-05-19 | Outpatient (REF) | payer MEDICARE, OTHER | LOC: M SFHCPLAZ 15:37 | PROVIDERS: ATTEND Nurse Practitioner Adult Health | DX: R35.0 Frequency of micturition (principal) | CPT/HCPCS: 81002; 87088; 87186; G0463 ==

== ENCOUNTER → 2018-06-16 | Outpatient (REF) | payer MEDICARE, OTHER ==
[2018-06-16 11:00] LABS: ALBUMIN 3.7 GM/DL (3.2-5.2); ALT/SGPT 26 U/L (12-78); BILIRUBIN,TOTAL 0.3 MG/DL (0.2-1.0); BLOOD UREA NITROGEN 23 MG/DL (7-18); CALCIUM LEVEL 8.8 MG/DL (8.8-10.2); CARBON DIOXIDE LEVEL 26 MEQ/L (21-32); CHLORIDE LEVEL 108 MEQ/L (98-107); CREATININE FOR GFR 0.73 MG/DL (0.55-1.30); GLOMERULAR FILTRATION RATE > 60.0 (>32); GLUCOSE, FASTING 101 MG/DL (70-100); MAGNESIUM LEVEL 2.1 MG/DL (1.8-2.4); SODIUM LEVEL 143 MEQ/L (136-145); TOTAL PROTEIN 6.6 GM/DL (6.4-8.2)
[2018-06-16 11:06] LABS: HEMOGLOBIN A1c 6.2 %
== END ==
LOC: M SFHCPLAZ 08:05
PROVIDERS: ATTEND Internal Medicine
DX: I10 Essential (primary) hypertension (principal); R73.01 Impaired fasting glucose; E03.9 Hypothyroidism, unspecified; Z79.01 Long term (current) use of anticoagulants

== ENCOUNTER → 2018-07-20 | Outpatient (REF) | payer MEDICARE, OTHER ==
[~2018-07-20] MED LIST changes: -ASPI1TAB PO; +ASPI81TA26 PO; -FLUO0.01 TOP; +FLUO0.0112 TOP; +HYDR-2773 PO; -HYDR10TAB PO
[2018-07-20 18:35] LABS: APPEARANCE, URINE CLOUDY (CLEAR); BACTERIA, URINE AUTO 1+ (NEGATIVE); BILIRUBIN, URINE AUTO NEGATIVE (NEGATIVE); BLOOD, URINE BLOOD 3+ (NEGATIVE); COLOR, URINE AMBER (YELLOW); GLUCOSE, URINE (UA) AUTO NEGATIVE (NEGATIVE); KETONE, URINE AUTO NEGATIVE (NEGATIVE); LEUKOCYTE ESTERASE, URINE AUTO 3+ (NEGATIVE); MUCUS, URINE SMALL (NEGATIVE); NITRITE, URINE AUTO NEGATIVE (NEGATIVE); PROTEIN, URINE AUTO 2+ mg/dL (NEGATIVE); RBC, URINE AUTO TNTC /HPF (0-3); SPECIFIC GRAVITY URINE AUTO 1.013 (1.002-1.035); SQUAMOUS EPITHELIAL CELL UR AU 2 /HPF (0-6); TRANSITIONAL EPITHELIAL AUTO 7 /HPF; UROBILINOGEN, URINE AUTO 0.2 mg/dL (0.0-2.0); WBC, URINE AUTO TNTC /HPF (0-3)
== END ==
LOC: M SFHCPLAZ 14:45
PROVIDERS: ATTEND Internal Medicine
DX: R30.0 Dysuria (principal); R35.0 Frequency of micturition

== ENCOUNTER → 2019-01-23 | Outpatient (CLI) | payer MEDICARE, OTHER ==
[~2019-01-23] MED LIST changes: -OMEP20CA3 PO; +OMEP20CA4 PO
--- NOTE | 2019-01-23 13:34 | REP ---
MRI LUMBAR SPINE WITHOUT CONTRAST: HISTORY: Ankylosing hyperostosis. [place]. Rule out compression fracture. Injury in a fall 1 month ago. No comparison imaging is available. TECHNIQUE: Sagittal and axial T1- and T2-weighted scans are acquired in the usual fashion with and without fat saturation. Sequences include spin echo, turbo spin-echo, and STIR imaging sequences. MRI FINDINGS: There is diffuse degenerative spondylosis change. There is straightening of some of the normal lumbar lordosis. Lumbar vertebral body heights are preserved. There are reactive marrow changes associated with the degenerative disc disease. The tip of the conus medullaris is normal in position and appearance at L1. There is diffuse disc bulging at T12-L1. Axial and sagittal images taken at the L1-2 disc level demonstrate posterior osteophytic ridging associated with diffuse disc bulging indenting the ventral margin of the thecal sac. Canal size is borderline. Minimal facet hypertrophy is present. At the L2-3, there is moderate central canal stenosis due to posterior osteophytic ridging, with ligamentum flavum and facet hypertrophy. AP dimension of the thecal sac at the L2-3 disc level is 6 mm. No foraminal narrowing is seen. At L3-L4, there is moderate central canal stenosis due to diffuse disc bulging, facet and ligamentum flavum hypertrophy. Midline AP dimension of the thecal sac and L3-4 is 6.4 mm. The neural foramen are bilaterally minimally narrowed. At L4-L5, there is diffuse disc bulging. Moderate facet hypertrophy is present bilaterally. No foraminal encroachment or central canal stenosis is seen. At L5-S1, there is moderate facet osteoarthritis. No nerve root compression is seen. No central canal stenosis is seen. Mild central disc bulging is present. IMPRESSION: Diffuse fairly advanced degenerative spondylosis changes. The dominant abnormality is moderate central canal stenosis at L2-3 and L3-4. Electronically Signed by Kirk Mejia MD 01/23/2019 03:16 P
== END ==
LOC: M RAD 08:22
PROVIDERS: ATTEND Physician Assistant
DX: M48.15 Ankylosing hyperostosis [Forestier], thoracolumbar region (principal)

== ENCOUNTER → 2019-02-08 | Outpatient (REF) | payer MEDICARE, OTHER ==
[2019-02-08 11:32] LABS: ALBUMIN 3.5 GM/DL (3.2-5.2); ALT/SGPT 30 U/L (12-78); BILIRUBIN,TOTAL 0.4 MG/DL (0.2-1.0); BLOOD UREA NITROGEN 17 MG/DL (7-18); CARBON DIOXIDE LEVEL 30 MEQ/L (21-32); CHLORIDE LEVEL 110 MEQ/L (98-107); CHOLESTEROL LEVEL 164 MG/DL (<200); CHOLESTEROL RISK RATIO 2.733 (<5); CREATININE FOR GFR 0.72 MG/DL (0.55-1.30); GLOMERULAR FILTRATION RATE > 60.0 (>32); GLUCOSE, FASTING 104 MG/DL (70-100); HDL CHOLESTEROL 60 MG/DL (>40); LDL CHOLESTEROL 85 MG/DL (<100); MAGNESIUM LEVEL 2.1 MG/DL (1.8-2.4); NON-HDL-C 104 MG/DL; POTASSIUM SERUM 4.1 MEQ/L (3.5-5.1); SODIUM LEVEL 145 MEQ/L (136-145); TOTAL PROTEIN 6.9 GM/DL (6.4-8.2); TRIGLYCERIDES LEVEL 97 MG/DL (<150)
[2019-02-08 11:51] LABS: HEMOGLOBIN A1c 6.2 %
== END ==
LOC: M SFHCPLAZ 08:00
PROVIDERS: ATTEND Internal Medicine
DX: I10 Essential (primary) hypertension (principal); R73.01 Impaired fasting glucose; E78.00 Pure hypercholesterolemia, unspecified

== ENCOUNTER 2019-03-14 10:35 | Outpatient (RCR) | payer MEDICARE, OTHER ==
[~2019-03-14 10:35] MED LIST changes: -SIMV40TA2 PO; +SIMV40TA20 PO
== END 2019-03-18 ==
LOC: M PT 10:35
PROVIDERS: ATTEND Internal Medicine
DX: R32 Unspecified urinary incontinence (principal)

== ENCOUNTER 2019-03-28 10:45 | Outpatient (RCR) | payer MEDICARE, OTHER ==
[~2019-03-28 10:45] MED LIST changes: +OMEP-172 PO; -OMEP20CA4 PO
== END 2019-04-18 ==
LOC: M PT 10:45
PROVIDERS: ATTEND Internal Medicine
DX: R32 Unspecified urinary incontinence (principal)

== ENCOUNTER → 2019-08-18 | Outpatient (REF) | payer MEDICARE, OTHER ==
[~2019-08-18] MED LIST changes: -OMEP-172 PO; +OMEP1CAP73 PO; +VITA-243 PO; -VITA500T PO
[2019-08-18 10:14] LABS: HEMATOCRIT 40.8 % (36.0-47.0); HEMOGLOBIN 13.5 g/dl (12.0-15.5); MEAN CORPUSCULAR HEMOGLOBIN 29.8 pg (27.0-33.0); MEAN CORPUSCULAR HGB CONC 33.1 g/dl (32.0-36.5); MEAN CORPUSCULAR VOLUME 90.1 fl (80.0-96.0); PLATELET COUNT, AUTOMATED 217 10^3/uL (150-450); RED BLOOD COUNT 4.53 10^6/uL (4.00-5.40); WHITE BLOOD COUNT 4.7 10^3/uL (4.0-10.0)
[2019-08-18 10:36] LABS: HEMOGLOBIN A1c 6.3 %
[2019-08-18 10:51] LABS: ALBUMIN 3.6 GM/DL (3.2-5.2); ALT/SGPT 27 U/L (12-78); BILIRUBIN,TOTAL 0.5 MG/DL (0.2-1.0); BLOOD UREA NITROGEN 18 MG/DL (7-18); CALCIUM LEVEL 8.9 MG/DL (8.8-10.2); CARBON DIOXIDE LEVEL 30 MEQ/L (21-32); CHLORIDE LEVEL 107 MEQ/L (98-107); CREATININE FOR GFR 0.78 MG/DL (0.55-1.30); GLOMERULAR FILTRATION RATE > 60.0 (>32); GLUCOSE, FASTING 107 MG/DL (70-100); MAGNESIUM LEVEL 2.1 MG/DL (1.8-2.4); POTASSIUM SERUM 3.9 MEQ/L (3.5-5.1); SODIUM LEVEL 142 MEQ/L (136-145); TOTAL PROTEIN 6.4 GM/DL (6.4-8.2)
== END ==
LOC: M PLALAB 08:47
PROVIDERS: ATTEND Internal Medicine
DX: K22.70 Barrett's esophagus without dysplasia (principal); I10 Essential (primary) hypertension; R73.01 Impaired fasting glucose; E03.9 Hypothyroidism, unspecified